=== PATIENT | female | born 1930 | race Caucasian/White ===

== ENCOUNTER 2019-03-19 13:21 | Observation (INO) ==
--- OUTSIDE RECORDS SUMMARY | 2019-03-19 13:25 | External Medical Summary | Continuity of Care Document ---
:1930 Author Name Socorro Carrington, Provider Address Unavailable Unavailable , Care Team Providers Name Role Phone Ok [email or web address] PCP, UNKNOWN Unavailable Unavailable Problems Active medical history not documented Allergies and Adverse Reactions Allergy history not documented Medications Medications not documented Procedures Procedures not documented Immunizations Immunizations not documented Plan of Treatment Planned Observations Planned Goals not documented Results No Known Results Results not documented
--- NOTE | 2019-03-19 14:24 | Emergency Department Note ---
Entered by Yris Sarabia acting as a scribe for History of Present Illness General Chief complaint: Leg Weakness, Bilateral Time Seen by Provider: 03/19/19 13:56 Source: patient History of Present Illness Onset (ago): day(s) (yesterday) Location: left (knee) and right (knee, elbow) Pain Consistency: + other (worsening) Quality: + other (leg weakness) Associated symptoms: + other (Positive right elbow weakness and pain. Negative recent trauma, hip pain, urinary symptoms, cough, SOB, chest pain, fevers, abdominal pain, prior knee surgeries) The patient is a 88 year old female who presents to the ED with complaints of leg weakness beginning yesterday. She is on coumadin and has a past hx of a stroke. She states she has had chronic left knee pain for years but does not normally have issues with her right leg. She is accompanied by her friend who states yesterday around dinner, the patient began complaining of right knee pain and difficulty ambulating. When she was going to bed, she could no longer walk due to her pain. She notes her pain radiates down her right [place] and she also has right elbow pain and weakness. The patient denies any recent trauma, hip pain, urinary symptoms, cough, SOB, chest pain, fevers, abdominal pain, prior knee surgeries. Her PCP is Dr. Walter Beckford, Cashier Assistant. Home Medications Home Medications Medication Instructions Recorded Confirmed Type acetaminophen [Tylenol Extra 500 mg PO Q6H PRN 03/19/19 03/19/19 History Strength] ascorbic acid (vitamin C) [Vitamin 500 mg PO BIDM 03/19/19 03/19/19 History C] aspirin 81 mg PO Q2D 03/19/19 03/19/19 History atorvastatin 20 mg PO QDD 03/19/19 03/19/19 History camphor-methyl salicyl-menthol 1 ea TOPICAL UD 03/19/19 03/19/19 History [Salonpas Deep Relieving] carvedilol 12.5 mg PO BID 03/19/19 03/19/19 History fluoride (sodium) [Denta 5000 Plus] 1 applic DENTAL DAILY 03/19/19 03/19/19 H istory glucosamine sulfate [Glucosamine] 500 mg PO BIDM 03/19/19 03/19/19 History lactobacillus combination no.4 3,000 mmu cells PO .Q2D.QAM 03/19/19 03/19/19 History [Probiotic] losartan 100 mg PO QAM 03/19/19 03/19/19 History multivitamin 1 tab PO QAM 03/19/19 03/19/19 History vitamin B complex 1 tab PO QDD 03/19/19 03/19/19 History vitamin E 400 unit PO QAM 03/19/19 03/19/19 History warfarin 2 mg PO HS 03/19/19 03/19/19 History Allergies Allergy/AdvReac Type Severity Reaction Status Date / Time doxycycline Allergy Severe SWELLING Verified 03/19/19 14:47 Penicillins Allergy Severe ANAPHYLAXIS Verified 03/19/19 14:47 Past Med/Surg History Medical History AAA (abdominal aortic aneurysm) (Chronic) CKD (chronic kidney disease), stage III History of CVA (cerebrovascular accident) History of tobacco abuse HLD (hyperlipidemia) HTN (hypertension) Osteoporosis Stroke Surgical History History of cataract surgery (Resolved) History of tonsillectomy Family History Father , 53 No problems noted. Mother , 93 PMR (polymyalgia rheumatica) Other No pertinent family history in first degree relatives Social History (Updated 03/19/19 @ 18:41 by Bisi Parker PA-C) Preferred Language: Turkish Communication Ability: Effective Pocket Marker Required: No Beliefs That Will Affect Care: None Current Living Situation: Family Current Living Situation Comment: lives with daughter Other Information That Helps Us Care for You: No Feels Safe at Home: Yes Safety Concerns: Feels Safe At This Time Smoking Status: Former smoker Tobacco Type: cigarettes ; packs per day: 1 ; Years Smoked: 50 ; Do You Dip or Chew Tobacco: No ; Smoking End Date: 2007 ; Second Hand Exposure: No ; Tobacco Cessation Education Requested by Patient: No Hx Alcohol Use: No Hx Substance Use: No Review of Systems See HPI for pertinent positives & negatives. and A total of 10 systems reviewed and were otherwise negative Physical Exam Vital Signs Vital Signs - 24 hr 03/19/19 13:25 03/19/19 13:26 03/19/19 13:28 Temperature 37.8 C H Temperature Source Oral Pulse Rate 80 75 80 Pulse Rate from SpO2 Sensor 80 79 Pulse Rhythm Regular Pulse Strength Normal Respiratory Rate 21 11 L Respiratory Effort / Characteristics Non-Labored Respiratory Depth Normal Respiratory Pattern Regular Blood Pressure 194/81 H 194/81 H Blood Pressure Mean 126 118 Blood Pressure Position Lying Pulse Oximetry 95 95 95 Oxygen Delivery Method Room Air Sepsis Recent Fever Within 48 Hours No Sepsis Action Taken by Nursing No Action Required 03/19/19 13:30 03/19/19 14:00 Temperature Temperature Source Pulse Rate 79 79 Pulse Rate from SpO2 Sensor 79 79 Pulse Rhythm Pulse Strength Respiratory Rate 22 20 Respiratory Effort / Characteristics Respiratory Depth Respiratory Pattern Blood Pressure Blood Pressure Mean Blood Pressure Position Pulse Oximetry 95 93 Oxygen Delivery Method Sepsis Recent Fever Within 48 Hours Sepsis Action Taken by Nursing General: Non-ill appearing older female in no acute distress. HEENT: Normal cephalic atraumatic. Pupils are equal round and reactive to light. Extraocular movements are intact. Oropharynx is pink with moist mucous membranes. No swelling of the mouth lips or tongue. Neck: Supple with a midline trachea. No meningeal signs or stiffness, no JVD or bruits. No Stridor. Chest: Clear to auscultation bilaterally. No wheezes or rhonchi. No increased work of breathing. Heart: regular rate and rhythm. Abdomen: Soft nontender, nondistended without rebound guarding or rigidity. Extremities: No cyanosis clubbing or edema. No calf tenderness or asymmetry. F eet are pink and well perfused appearing with normal distal pulse. Right knee is swollen compared to left. Spine/Back. Non tender to palpation. No CVA tenderness Skin: Good turgor without rashes. Neurologic exam: Cranial nerves two through 12 are intact. Motor and sensation are intact and symmetrical throughout. Course Course 1359: Past medical records reviewed. The patient was evaluated in room C12. A complete history and physical exam was performed. 1443: I reevaluated the patient at this time She is resting comfortable and waiting to go to ultrasound. 1630: I reevaluated the patient at this time. She is undergoing an ambulatory trial. 1710: The patient failed her ambulatory trial. 1724: Discussed the patient's case with Dr. Sequeira, [facility]. The patient will be evaluated for further management. Administered Medications Carvedilol (Coreg) 12.5 mg PO BID VALE Stop: 04/18/19 20:59 Last Admin: 03/19/19 20:28 Dose: 12.5 mg Documented by: [id number] Medical Decision Making Differential Diagnosis Differential diagnosis: Etiologies such as DVT, Bakers cyst, infection, joint effusion, electrolyte or metabolic abnormality, as well as others were entertained. Medical Records Attestation: I reviewed the patient's medical records. Home Medications Current Medication List: was personally reviewed by me Laboratory Data Attestation: I reviewed the patient's lab results. Result diagrams: 03/19/19 14:17 03/19/19 14:17 Lab Results 03/19/19 03/19/19 03/19/19 Range/Units 14:17 14:17 14:17 WBC 8.59 (4.8-10.8) K/uL RBC 4.24 (4.2-5.4) M/uL Hgb 12.5 (12.0-16.0) g/dL Hct 38.0 (37-47) % MCV 89.6 (80-100) fL MCH 29.5 (25-34) pg MCHC 32.9 (32-36) g/dL RDW Std Deviation 48.7 H (36.4-46.3) fL RDW Coeff of Ele 14.8 H (11.5-14.5) % Plt Count 138 (130-400) K/uL MPV 11.6 H (7.4-10.4) fL Immature Gran % (Auto) 0.1 % Neut % (Auto) 77.1 % Lymph % (Auto) 12.2 % [place] % (Auto) 10.4 % Eos % (Auto) 0.0 % Baso % (Auto) 0.2 % Immature Gran # (Auto) 0.01 (0.00-0.02) K/uL Neut # (Auto) 6.62 H (1.4-6.5) K/uL Lymph # (Auto) 1.05 L (1.2-3.4) K/uL [place] # (Auto) 0.89 H (0.11-0.59) K/uL Eos # (Auto) 0.00 (0-0.5) K/uL Baso # (Auto) 0.02 (0-0.2) K/uL PT 17.9 H (9.0-12.0) Seconds INR 1.8 H (0.9-1.1) APTT 38.4 H (21.0-31.0) Seconds PTT Ratio 1.4 Sodium 140 (136-145) mmol/L Potassium 3.5 (3.5-5.1) mmol/L Chloride 108 H (98-107) mmol/L Carbon Dioxide 27 (21-32) mmol/L Anion Gap 5.0 (3-11) BUN 20 H (7-18) mg/dl Creatinine 1.10 (0.6-1.2) mg/dl Est Cr Clr Drug Dosing 37.5 ml/min Est GFR ( Amer) 52.6 Est GFR (Non-Af Amer) 45.4 BUN/Creatinine Ratio 18.5 (10-20) Glucose 131 H (70-99) mg/dl Calcium 9.4 (8.5-10.1) mg/dl Total Bilirubin 1.0 (0.2-1) mg/dl AST 14 L (15-37) U/L ALT 17 (12-78) U/L Alkaline Phosphatase 55 (45-117) U/L Total Protein 7.2 (6.4-8.2) gm/dl Albumin 3.4 (3.4-5.0) gm/dl Globulin 3.8 (2.5-4.0) gm/dl Albumin/Globulin Ratio 0.9 (0.9-2) TSH 0.762 (0.300-4.500) uIu/ml 03/19/19 Range/Units 14:17 WBC (4.8-10.8) K/uL RBC (4.2-5.4) M/uL Hgb (12.0-16.0) g/dL Hct (37-47) % MCV (80-100) fL MCH (25-34) pg MCHC (32-36) g/dL RDW Std Deviation (36.4-46.3) fL RDW Coeff of Ele (11.5-14.5) % Plt Count (130-400) K/uL MPV (7.4-10.4) fL Immature Gran % (Auto) % Neut % (Auto) % Lymph % (Auto) % [place] % (Auto) % Eos % (Auto) % Baso % (Auto) % Immature Gran # (Auto) (0.00-0.02) K/uL Neut # (Auto) (1.4-6.5) K/uL Lymph # (Auto) (1.2-3.4) K/uL [place] # (Auto) (0.11-0.59) K/uL Eos # (Auto) (0-0.5) K/uL Baso # (Auto) (0-0.2) K/uL PT (9.0-12.0) Seconds INR (0.9-1.1) APTT Cancelled (21.0-31.0) Seconds PTT Ratio Cancelled Sodium (136-145) mmol/L Potassium (3.5-5.1) mmol/L Chloride (98-107) mmol/L Carbon Dioxide (21-32) mmol/L Anion Gap (3-11) BUN (7-18) mg/dl Creatinine (0.6-1.2) mg/dl Est Cr Clr Drug Dosing ml/min Est GFR ( Amer) Est GFR (Non-Af Amer) BUN/Creatinine Ratio (10-20) Glucose (70-99) mg/dl Calcium (8.5-10.1) mg/dl Total Bilirubin (0.2-1) mg/dl AST (15-37) U/L ALT (12-78) U/L Alkaline Phosphatase (45-117) U/L Total Protein (6.4-8.2) gm/dl Albumin (3.4-5.0) gm/dl Globulin (2.5-4.0) gm/dl Albumin/Globulin Ratio (0.9-2) TSH (0.300-4.500) uIu/ml Imaging Data Radiologist's Impression: Radiology results as stated below per my review and the radiologist's interpretation: US venous doppler LE RT CLINICAL HISTORY: 88 years-old Female presenting with pain and swelling in the right lower extremity, eval for DVT/bakers cyst. TECHNIQUE: Real-time grayscale and color and spectral Doppler ultrasound imaging of the veins of the right lower extremity was performed. Compression and augmentation were also utilized. COMPARISON: Correlation made to plain radiographs of the right knee from earlier the same day.. FINDINGS: RIGHT: Common femoral vein: Patent. Greater saphenous vein (superficial): Patent. Deep femoral vein: Patent. Femoral vein: Patent. Popliteal vein: Patent. Calf veins: Patent. Other: Collection in the right popliteal fossa measuring 5.5 x 1.3 x 2.4 cm, which is multilobular and anechoic. This also contains calcifications. IMPRESSION: 1. No evidence of deep venous thrombosis. 2. Suspected popliteal cyst with internal loose bodies. ACT 112: Negative or not required by law. Electronically signed by: Shorty Hurtado M.D. 03/19/2019 3:15 PM XR knee RT 1 or 2V routine CLINICAL HISTORY: Right knee swelling. COMPARISON: None FINDINGS: No acute fracture is noted. There is a large right knee joint effusion. No suspicious osseous lesion is present. There is marked lateral compartment joint space narrowing with osteophytosis and sclerosis. There is osteophytosis within the medial and patellofemoral compartments. A 1.8 cm calcific density projects anterior to the joint space. A 1.9 cm suprapatellar calcific density is noted. There is extensive vascular calcification. IMPRESSION: 1. No acute fracture. 2. Large right knee joint effusion. Several suspected joint bodies. 3. 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 ACT 112: Negative or not required by law. Electronically signed by: Will Arora M.D. 03/19/2019 2:46 PM ECG Data Attestation: I personally reviewed and interpreted this ECG as follows: Indication: + other (leg weakness ) Rate (beats per minute): 77 Rhythm: + normal sinus ECG ST segments: no ST depression and no ST elevation ECG Findings: + LVH and + Other (old inferior infarct) Comparison ECG Date: from (10/21/14) Change: no significant change Blood Pressure Blood Pressure Findings: Elevated blood pressure Blood Pressure Disposition: further management by hospitalist [facility] Narrative This patient comes in as described above. She was placed in room C 12. She has been having right knee swelling and weakness and pain. She is on Coumadin. She has had no fall. On exam, the knee is swollen. She is neurologically and neurovascularly intact. IV access was established. I did order ultrasound as well as an x-ray multiple blood testing. She does have a history of an aneurysm that was deemed nonoperative by her choice based on the risk and the benefits. She has had no abdominal pain or back pain. X-ray shows an effusion with some loose foreign bodies. Ultrasound does show a Tian's cyst without DVT. She is on Coumadin with INR 1.8 and she has nothing to suggest infection. she has no acute electrolyte or metabolic abnormalities. She does have significant ambulatory dysfunction secondary to her knee does not appear to be infected clinically. She has no evidence of arterial compromise. We did do an ambulatory trial with a knee immobilizer and she was unable to get up. I had her field case manager see her and they consider trying to get her into [facility] for rehab. They would not take her tonight and she does need a hospital stay to qualify for rehab. Have consulted the hospitalist to see her in the ER and while she is in the hospital, Ortho could potentially see her as well. The patient was happy the plan and she will be admitted/observed. Impression & Plan Weakness, Effusion of right knee, Popliteal cyst, Current use of remote computer terminal operator anticoagulation, Ambulatory dysfunction Discharge Plan Visit Data *Final* Discharge Date/Time: 03/19/19 19:29 Chief Complaint: Leg Weakness, Bilateral ED Provider: Christopher Chaves Discharge Problem: Weakness, Effusion of right knee, Popliteal cyst, Current use of usp anticoagulation, Ambulatory dysfunction Patient Disposition: Admitted As Inpatient Discharge Instructions Interventions: ED Discharge Assessment Last Done: 03/19/19 19:29 Discharge Problem: Popliteal cyst Qualifiers: Laterality: right Qualified Code(s): M71.21 - Synovial cyst 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 I confirm that the note above accurately reflects all work, treatment, procedures, and medical decision making performed by me.
[2019-03-19 14:30] LABS: Basophils # (auto) 0.02 K/uL (0-0.2); Basophils % (auto) 0.2 %; Hemoglobin 12.5 g/dL (12.0-16.0); Immature Granulocytes # (auto) 0.01 K/uL (0.00-0.02); Immature Granulocytes % (auto) 0.1 %; Lymphocytes # (auto) 1.05 K/uL (1.2-3.4); Lymphocytes % (auto) 12.2 %; Mean Corpuscular Hemoglobin 29.5 pg (25-34); Mean Corpuscular Hgb Conc 32.9 g/dL (32-36); Mean Corpuscular Volume 89.6 fL (80-100); Mean Platelet Volume 11.6 fL (7.4-10.4); Monocytes # (auto) 0.89 K/uL (0.11-0.59); Monocytes % (auto) 10.4 %; Neutrophils # (auto) 6.62 K/uL (1.4-6.5); Neutrophils % (auto) 77.1 %; Platelet Count 138 K/uL (130-400); RDW Coefficient of Variation 14.8 % (11.5-14.5); RDW Standard Deviation 48.7 fL (36.4-46.3); Red Blood Count 4.24 M/uL (4.2-5.4); White Blood Count 8.59 K/uL (4.8-10.8)
[2019-03-19 14:40] LABS: INR 1.8 (0.9-1.1); Partial Thromboplastin Ratio 1.4; Partial Thromboplastin Time 38.4 Seconds (21.0-31.0); Prothrombin Time 17.9 Seconds (9.0-12.0)
--- NOTE | 2019-03-19 14:47 | XRay Report ---
XR knee RT 1 or 2V routine CLINICAL HISTORY: Right knee swelling. COMPARISON: None FINDINGS: No acute fracture is noted. There is a large right knee joint effusion. No suspicious osse ous lesion is present. There is marked lateral compartment joint space narrowing with osteophytosis a nd sclerosis. There is osteophytosis within the medial and patellofemoral compartments. A 1.8 cm calc ific density projects anterior to the joint space. A 1.9 cm suprapatellar calcific density is noted. There is extensive vascular calcification. IMPRESSION: 1. No acute fracture. 2. Large right knee joint effusion. Several suspected joint bodies. 3. 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 ACT 112: Negative or not required by law. Electronically signed by: Will Arora M.D. 03/19/2019 2:46 PM
[2019-03-19 14:48] LABS: Albumin Level 3.4 gm/dl (3.4-5.0); BUN Creatinine Ratio 18.5 (10-20); Calcium 9.4 mg/dl (8.5-10.1); Creatinine Clr Calc Pharmacy 37.5 ml/min; Est GFR (African American) 52.6; Est GFR (Non-African American) 45.4; Potassium 3.5 mmol/L (3.5-5.1)
[2019-03-19 14:59] LABS: Albumin Globulin Ratio 0.9 (0.9-2); Globulin 3.8 gm/dl (2.5-4.0); Thyroid Stimulating Hormone 0.762 uIu/ml (0.300-4.500); Total Protein 7.2 gm/dl (6.4-8.2)
--- NOTE | 2019-03-19 15:17 | Ultrasound Report ---
US venous doppler LE RT CLINICAL HISTORY: 88 years-old Female presenting with pain and swelling in the right lower extremity, eval for DVT/bakers cyst. TECHNIQUE: Real-time grayscale and color and spectral Doppler ultrasound imaging of the veins of the right lower extremity was performed. Compression and augmentation were also utilized. COMPARISON: Correlation made to plain radiographs of the right knee from earlier the same day.. FINDINGS: RIGHT: Common femoral vein: Patent. Greater saphenous vein (superficial): Patent. Deep femoral vein: Patent. Femoral vein: Patent. Popliteal vein: Patent. Calf veins: Patent. Other: Collection in the right popliteal fossa measuring 5.5 x 1.3 x 2.4 cm, which is multilobular an d anechoic. This also contains calcifications. IMPRESSION: 1. No evidence of deep venous thrombosis. 2. Suspected popliteal cyst with internal loose bodies. ACT 112: Negative or not required by law. Electronically signed by: Shorty Hurtado M.D. 03/19/2019 3:15 PM
--- NOTE | 2019-03-19 18:32 | History & Physical Report ---
Date of Service March 19, 2019 Assessment & Plan (1) Ambulatory dysfunction: (2) Effusion of right knee: (3) Popliteal cyst: Mrs. Adler is a pleasant 88-year-old female who has significant past medical history of CVA in 2003 with no residual deficit on warfarin, HTN, HLD, CKD stage III, aortic valve stenosis, osteoporosis, AAA, history of tobacco abuse who presents to ED secondary to severe right knee pain and inability to walk x2 days. Ambulatory dysfunction right knee pain likely secondary to large right knee effusion and symptomatic popliteal cyst. Effusion likely arthritic or hemarthrosis in nature. Infection not entirely ruled out. Admit to Med/Surg Consult orthopedics for possible joint aspiration Dedicated right knee ultrasound Continue immobilizer, ice 4 times daily warfarin on hold PT & OT consults in a.m. WBC WNL, temp 37.3 upon my evaluation, appears nontoxic -if patient develops fever overnight low threshold to start antibiotics, severe allergic reaction to doxycycline and penicillins (4) Current use of terminal makeup operator anticoagulation: On warfarin secondary to history of CVA INR 1.8 Hold warfarin this evening until seen and evaluated by Ortho possible joint arthrocentesis Repeat INR in a.m. (5) HTN (hypertension): blood pressure initially elevated upon arrival now 154/63 continue coreg, losartan monitor (6) HLD (hyperlipidemia): continue statin (7) CKD (chronic kidney disease), stage III: Cr 1.10 baseline Cr 1.5 monitor (8) History of CVA (cerebrovascular accident): continue ASA, Statin wafarin on hold obtain PT/INR in a.m. (9) DVT prophylaxis: SCD/TEDS warfarin on hold until seen by orthopedic Disposition: admit under observation to med/surg, likely discharge to acute rehab tomorrow Follow up: PCP Dr. Beckford upon discharge History of Present Illness Chief Complaint: Severe right knee pain and inability to walk x2 days. Primary Care Provider: Walter Beckford DO Mrs. Adler is a pleasant 88-year-old female who has significant past medical history of CVA in 2003 with no residual deficit on warfarin, HTN, HLD, CKD stage III, aortic valve stenosis, osteoporosis, AAA, history of tobacco abuse who presents to ED secondary to severe right knee pain and inability to walk x2 days. Daughter is at bedside. Approximately 2 days ago she noted swelling of her right knee which continued to worsen. Last evening she was having significant inability to ambulate which had worsened today. Because of the pain and inability to walk EMS was called. Pain is on the front of the right knee as well as the back. Complains of fluid in the back of her knee. Pain improved with rest but made worse with any movement or walking. Has tried [id number] Tylenol with mild relief. Prior to her right knee pain she has otherwise been in her normal state of health. She lives at home with a first- floor set up with her daughter. At baseline ambulates with a walker and cane without difficulty. Denies any recent illness, fever, chills, sweats, lightheadedness, dizziness, chest pain, shortness with, palpitations, cough, hemoptysis, nausea, vomiting, abdominal pain, dysuria, increased urgency or frequency with urination. Her bowel habits are normal for her, more constipated. Appetite has been stable, no weight gain or loss denies any significant lower extremity swelling despite her right knee. She denies any recent trauma or fall. Denies ever having similar symptoms in past. In ED patient remained hemodynamically stable. Upon my evaluation blood pressure was 154/63 and temperature 37.3. 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 Right lower extremity ultrasound was negative for DVT but did reveal popliteal cyst 5 cm x 2 cm. Patient was placed in knee immobilizer which did improve symptoms. Allergies Allergy/AdvReac Type Severity Reaction Status Date / Time doxycycline Allergy Severe SWELLING Verified 03/19/19 14:47 Penicillins Allergy Severe ANAPHYLAXIS Verified 03/19/19 14:47 Home Medications Home Medications Medication Instructions Recorded Confirmed Type acetaminophen [Tylenol Extra 500 mg PO Q6H PRN 03/19/19 03/19/19 History Strength] ascorbic acid (vitamin C) [Vitamin 500 mg PO BIDM 03/19/19 03/19/19 History C] aspirin 81 mg PO Q2D 03/19/19 03/19/19 History atorvastatin 20 mg PO QDD 03/19/19 03/19/19 History camphor-methyl salicyl-menthol 1 ea TOPICAL UD 03/19/19 03/19/19 History [Salonpas Deep Relieving] carvedilol 12.5 mg PO BID 03/19/19 03/19/19 History fluoride (sodium) [Denta 5000 Plus] 1 applic DENTAL DAILY 03/19/19 03/19/19 History glucosamine sulfate [Glucosamine] 500 mg PO BIDM 03/19/19 03/19/19 History lactobacillus combination no.4 3,000 mmu cells PO .Q2D.QAM 03/19/19 03/19/19 History [Probiotic] losartan 100 mg PO QAM 03/19/19 03/19/19 History multivitamin 1 tab PO QAM 03/19/19 03/19/19 History vitamin B complex 1 tab PO QDD 03/19/19 03/19/19 History vitamin E 400 unit PO QAM 03/19/19 03/19/19 History warfarin 2 mg PO HS 03/19/19 03/19/19 History Past Med/Surg History Medical History AAA (abdominal aortic aneurysm) (Chronic) CKD (chronic kidney disease), stage III History of CVA (cerebrovascular accident) History of tobacco abuse HLD (hyperlipidemia) HTN (hypertension) Osteoporosis Stroke Surgical History History of cataract surgery (Resolved) History of tonsillectomy Family History Father , 53 No problems noted. Mother , 93 PMR (polymyalgia rheumatica) Other No pertinent family history in first degree relatives Social History (Updated 03/19/19 @ 18:41 by Bisi Parker PA-C) Preferred Language: Swazi Communication Ability: Effective Galley Worker Required: No Beliefs That Will Affect Care: None Current Living Situation: Family Current Living Situation Comment: lives with daughter Other Information That Helps Us Care for You: No Feels Safe at Home: Yes Safety Concerns: Feels Safe At This Time Smoking Status: Former smoker Tobacco Type: cigarettes ; packs per day: 1 ; Years Smoked: 50 ; Do You Dip or Chew Tobacco: No ; Smoking End Date: 2007 ; Second Hand Exposure: No ; Tobacco Cessation Education Requested by Patient: No Hx Alcohol Use: No Hx Substance Use: No Review of Systems Review of Systems: All systems reviewed & are unremarkable except as noted in HPI & below Physical Exam Physical Exam: Constitutional: Elderly, female, WD/WN, vitals as above, NAD, sitting up in bed, pleasant, conversing easily Head: Normocephalic, Atraumatic Eyes: PERRL, conjunctivae normal, anicteric sclerae ENMT: external ear and nose normal, oropharynx normal Neck: trachea midline, no thyromegaly normal visual inspection Respiratory: normal respiratory effort, lungs clear to auscultation, no wheeze, rales, rhonchi. Normal insp/exp effort, no accessory muscle use Cardiovascular: RRR, harsh 3/6 LIZA noted precordially but maximally at RUSB, no pretibial or pedal edema Vessels: no JVD or carotid bruit Chest: normal inspection of chest Abdomen: normal bowel sounds, soft, nontender, no hepatosplenomegaly Musculoskeletal: no cyanosis or clubbing, extremities motor strength 5/5 bilateral upper extremities, inability to test right lower extremity secondary to pain, left lower extremity 4/5 Right knee with effusion, warmth, no erythema, decreased range of motion passively with flexion, right knee popliteal cyst palpated on exam Skin: no rashes, warm and dry normal turgor Neurologic: PERRL, EOMI, accommodation nl, no face palsy, no dysarthria CN's II-XI intact bilaterally and moves all extremities Psychiatric: A+Ox3, euthymic affect Lymphatic: no cervical or axillary lymphadenopathy : deferred Results & Data Vital Signs (Past 12 Hours) Vital Signs Temp Pulse Resp BP Pulse Ox 03/19/19 14:00 79 20 93 03/19/19 13:30 79 22 95 03/19/19 13:28 80 95 03/19/19 13:26 37.8 C H 75 11 L 194/81 H 95 03/19/19 13:25 80 21 194/81 H 95 Laboratory Results Short CBC 03/19/19 Range/Units 14:17 WBC 8.59 (4.8-10.8) K/uL Hgb 12.5 (12.0-16.0) g/dL Hct 38.0 (37-47) % Plt Count 138 (130-400) K/uL BMP 03/19/19 14:17 Sodium 140 Potassium 3.5 Chloride 108 H Carbon Dioxide 27 BUN 20 H Creatinine 1.10 Glucose 131 H Calcium 9.4 Liver Function 03/19/19 Range/Units 14:17 Total Bilirubin 1.0 (0.2-1) mg/dl AST 14 L (15-37) U/L ALT 17 (12-78) U/L Alkaline Phosphatase 55 (45-117) U/L Albumin 3.4 (3.4-5.0) gm/dl Diagnostic Findings Knee Xray: IMPRESSION: 1. No acute fracture. 2. Large right knee joint effusion. Several suspected joint bodies. 3. 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 Venous Doppler Study: FINDINGS: RIGHT: Common femoral vein: Patent. Greater saphenous vein (superficial): Patent. Deep femoral vein: Patent. Femoral vein: Patent. Popliteal vein: Patent. Calf veins: Patent. Other: Collection in the right popliteal fossa measuring 5.5 x 1.3 x 2.4 cm, which is multilobular and anechoic. This also contains calcifications. IMPRESSION: 1. No evidence of deep venous thrombosis. 2. Suspected popliteal cyst with internal loose bodies. Code Status & VTE Plan Code Status Full Code VTE Prophylaxis Plan VTE Prophylaxis will be ordered: Yes Supervising Physician Co-Signing Physician Notes Attending Addendum: care coordinated with AJ Parker please refer to her notes for full details, I agree with her notes patient seen and examined, records reviewed by myself as well on exam, patient seen resting in bed, comfortable, pleasant states R knee pain has improved since admission denies fever/chills no other symptoms VS noted and reviewed oriented x 3, not in distress, speaks in sentences with no effort nor accessory muscle use normal rate, regular rhythm, no murmurs clear breath sounds bilaterally non distended, soft, nontender right knee: moderate edema, mild tenderness but no erythema, warmth; decreased ROM due to pain no bipedal edema, erythema, warmth no neuro deficits WBC 8.5 Hg 12.5 Crea 1.1 ASSESSMENT AND PLAN RIGHT KNEE EFFUSION Knee US: FINDINGS: Moderately complex medial and lateral to the patella. Medial this measures approximately 3.5 x 1.0 cm. Laterally this measures 7 x 2 cm. This may represent a joint effusion. IMPRESSION: Fluid medial and lateral to the patella potentially indicative of joint effusion. -- no fever/chills, no leukocytosis -- septic arthritis unlikely at this point if patient develops fever, need to start IV antibiotics -- pain control, Ortho consult JAIL USE OF ANTICOAGULATION- Coumadin HISTORY OF CVA -- INR 1.8 hold Coumadin for possible arthocentesis other diagnoses and plan of care as per AJ Banks's notes Jose Sequeira MD (1) Popliteal cyst Laterality: right Qualified Code(s): M71.21 - Synovial cyst of popliteal space [Tian], right knee
--- NOTE | 2019-03-19 19:32 | Ultrasound Report ---
US extremity non-vascular ltd CLINICAL HISTORY: R Knee Effusion COMPARISON STUDY: No previous studies for comparison. FINDINGS: Moderately complex medial and lateral to the patella. Medial this measures approximately 3. 5 x 1.0 cm. Laterally this measures 7 x 2 cm. This may represent a joint effusion. IMPRESSION: Fluid medial and lateral to the patella potentially indicative of joint effusion. ACT 112: Negative or not required by law. The above report was generated using voice recognition software. It may contain grammatical, syntax or spelling errors. Electronically signed by: Felice Comer M.D. 03/19/2019 7:30 PM
[2019-03-19] MEDS ORDERED: POLYETHYLENE (MIRALAX) 17 GM PACK PO PRN (19:44)
[2019-03-19] MEDS ORDERED: ACETAMINOPHEN 325 MG TAB PO PRN (19:44)
[2019-03-19] MEDS ORDERED: ONDANSETRON INJ 2 MG/ML 2 ML VIAL IV PRN (19:44)
[2019-03-19] MEDS: carvediloL 12.5 MG TAB PO SCH (20:28)
--- NOTE | 2019-03-19 23:10 | Electrocardiogram Report ---
Test Reason : Blood Pressure : / mmHG Vent. Rate : 077 BPM Atrial Rate : 077 BPM P-R Int : 148 ms QRS Dur : 092 ms QT Int : 348 ms P-R-T Axes : 017 -10 053 degrees QTc Int : 393 ms Sinus rhythm with Premature atrial complexes Moderate voltage criteria for LVH, may be normal variant Inferior infarct (cited on or before 11-DEC-2008) Abnormal ECG When compared with ECG of 22-OCT-2014 08:18, No significant change Confirmed by Uylsses Cuadra ([id number]) on 03/19/2019 11:10:37 PM Referred By: Confirmed By:Ulysses Cuadra
[2019-03-20 07:14] LABS: Basophils # (auto) 0.05 K/uL (0-0.2); Basophils % (auto) 0.8 %; Eosinophils # (auto) 0.11 K/uL (0-0.5); Eosinophils % (auto) 1.8 %; Hematocrit (blood only) 35.6 % (37-47); Hemoglobin 11.6 g/dL (12.0-16.0); Immature Granulocytes # (auto) 0.02 K/uL (0.00-0.02); Immature Granulocytes % (auto) 0.3 %; Lymphocytes # (auto) 1.16 K/uL (1.2-3.4); Lymphocytes % (auto) 18.5 %; Mean Corpuscular Hemoglobin 29.4 pg (25-34); Mean Corpuscular Hgb Conc 32.6 g/dL (32-36); Mean Corpuscular Volume 90.1 fL (80-100); Mean Platelet Volume 11.3 fL (7.4-10.4); Monocytes # (auto) 0.79 K/uL (0.11-0.59); Monocytes % (auto) 12.6 %; Neutrophils # (auto) 4.15 K/uL (1.4-6.5); Platelet Count 113 K/uL (130-400); RDW Coefficient of Variation 14.9 % (11.5-14.5); RDW Standard Deviation 49.3 fL (36.4-46.3); Red Blood Count 3.95 M/uL (4.2-5.4); White Blood Count 6.28 K/uL (4.8-10.8)
[2019-03-20 07:22] LABS: INR 1.6 (0.9-1.1); Prothrombin Time 15.9 Seconds (9.0-12.0)
[2019-03-20 07:40] LABS: BUN Creatinine Ratio 19.4 (10-20); Calcium 8.9 mg/dl (8.5-10.1); Creatinine Clr Calc Pharmacy 36.8 ml/min; Est GFR (African American) 51.5; Est GFR (Non-African American) 44.4; Potassium 3.5 mmol/L (3.5-5.1)
[2019-03-20] MEDS ORDERED: NON-FORMULARY MEDICATION (Glucosamine Sulfate [Glucosamine] 500 MG) PO SCH (08:00)
[2019-03-20] MEDS: LACTOBACILLUS ACIDOPHILUS (FLORANEX) TAB PO SCH (08:55)
[2019-03-20] MEDS: TOCOPHERYL, DL-ALPHA 400 UNITS CAP PO SCH (08:55)
[2019-03-20] MEDS: ASCORBIC ACID 500 MG TAB PO SCH ×2 (08:55→17:36)
[2019-03-20] MEDS: carvediloL 12.5 MG TAB PO SCH ×2 (08:55→20:44)
[2019-03-20] MEDS: MULTIVITAMIN TAB PO SCH (08:55)
[2019-03-20] MEDS: LOSARTAN POTASSIUM 50 MG TAB PO SCH (08:55)
--- NOTE | 2019-03-20 10:49 | Orthopedic Consultation ---
Date of Consultation March 20, 2019 Assessment & Plan (1) Effusion of right knee: Likely spontaneous hemarthrosis of the right knee. However will rule out other causes for right knee effusion including Lyme disease. Low suspicion for septic arthritis. No surgical intervention at this time. If worsening effusion or pain or suspicion for infection would we proceed with arthrocentesis. Conservative treatments at this time including Lidoderm patch, ice and elevation, physical therapy when medically stable. Thank you for the consultation. History of Present Illness Reason for Consultation: Right knee effusion Attending Physician: Jonah Dsouza MD History of Present Illness Patient is an 88-year-old female who presents to [facility] secondary to ambulatory dysfunction due to increasing right knee pain which began 03/17/2019. Patient denies any trauma to the right knee. Denies a ny previous symptoms of knee swelling, denies any fevers chills nausea vomiting shortness of breath or chest pain. Patient has known history for DJD of the right knee and has seen Dr. Aparicio previously for her knees. Patient is on Coumadin for previous stroke. She has residual left-sided weakness. Patient denies any tick bites or history of gout. Allergies Allergy/AdvReac Type Severity Reaction Status Date / Time doxycycline Allergy Severe SWELLING Verified 03/19/19 14:47 Penicillins Allergy Severe ANAPHYLAXIS Verified 03/19/19 14:47 Home Medications Home Medications Medication Instructions Recorded Confirmed Type acetaminophen [Tylenol Extra 500 mg PO Q6H PRN 03/19/19 03/19/19 History Strength] ascorbic acid (vitamin C) [Vitamin 500 mg PO BIDM 03/19/19 03/19/19 History C] aspirin 81 mg PO Q2D 03/19/19 03/19/19 History atorvastatin 20 mg PO QDD 03/19/19 03/19/19 History camphor-methyl salicyl-menthol 1 ea TOPICAL UD 03/19/19 03/19/19 History [Salonpas Deep Relieving] carvedilol 12.5 mg PO BID 03/19/19 03/19/19 History fluoride (sodium) [Denta 5000 Plus] 1 applic DENTAL DAILY 03/19/19 03/19/19 History glucosamine sulfate [Glucosamine] 500 mg PO BIDM 03/19/19 03/19/19 History lactobacillus combination no.4 3,000 mmu cells PO .Q2D.QAM 03/19/19 03/19/19 History [Probiotic] losartan 100 mg PO QAM 03/19/19 03/19/19 History multivitamin 1 tab PO QAM 03/19/19 03/19/19 History vitamin B complex 1 tab PO QDD 03/19/19 03/19/19 History vitamin E 400 unit PO QAM 03/19/19 03/19/19 History warfarin 2 mg PO HS 03/19/19 03/19/19 History Patient History Medical History AAA (abdominal aortic aneurysm) (Chronic) CKD (chronic kidney disease), stage III History of CVA (cerebrovascular accident) History of tobacco abuse HLD (hyperlipidemia) HTN (hypertension) Osteoporosis Stroke Surgical History History of cataract surgery (Resolved) History of tonsillectomy Family History Father , 53 No problems noted. Mother , 93 PMR (polymyalgia rheumatica) Other No pertinent family history in first degree relatives Social History Preferred Language: Setswana Communication Ability: Effective Smog Technician Required: No Beliefs That Will Affect Care: None Current Living Situation: Family Current Living Situation Comment: lives with daughter Other Information That Helps Us Care for You: No Feels Safe at Home: Yes Safety Concerns: Feels Safe At This Time Smoking Status: Former smoker Tobacco Type: cigarettes ; packs per day: 1 ; Years Smoked: 50 ; Do You Dip or Chew Tobacco: No ; Smoking End Date: 2007 ; Second Hand Exposure: No ; Tobacco Cessation Education Requested by Patient: No Hx Alcohol Use: No Hx Substance Use: No Review of Systems Review of Systems: All systems reviewed & are unremarkable except as noted in HPI & below Constitutional: as per Subjective / HPI Physical Exam Physical Exam: RLE NVSI +EHL/FHL/TA/GS SILT grossly, +2 DP pulse, compartments soft NT, limited range of motion of right knee with minimal pain with the exception of extreme flexion. Range of motion 0 to 85 degrees of flexion. Large effusion, no erythema or warmth Constitutional: WD/WN, vitals as above Results & Data Vital Signs (Past 12 Hours) Vital Signs Temp Pulse Resp BP BP Pulse Ox 03/20/19 07:14 36.9 C 60 18 122/70 93 03/19/19 23:28 36.7 C 66 16 126/73 95 Diagnostic Findings XR knee RT 1 or 2V routine CLINICAL HISTORY: Right knee swelling. COMPARISON: None FINDINGS: No acute fracture is noted. There is a large right knee joint effusion. No suspicious osseous lesion is present. There is marked lateral compartment joint space narrowing with osteophytosis and sclerosis. There is osteophytosis within the medial and patellofemoral compartments. A 1.8 cm calcific density projects anterior to the joint space. A 1.9 cm suprapatellar calcific density is noted. There is extensive vascular calcification. IMPRESSION: 1. No acute fracture. 2. Large right knee joint effusion. Several suspected joint bodies. 3. 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
--- NOTE | 2019-03-20 14:30 | Hospitalist Progress Note ---
Date of Service March 20, 2019 Assessment & Plan (1) Ambulatory dysfunction: Secondary to right knee hemarthrosis complicated by osteoarthritis We will get PT and OT evaluation (2) Effusion of right knee: Has been going on for the last few days and worse before admission Doubt any septic arthritis Ultrasound seems to be compatible with blood in the right knee joint Medial to patella 3.5 x 1.0 cm and laterally 7 x 2 cm Appreciate Ortho input and recommendation Likely conservative management (3) Popliteal cyst: Ultrasound of the right leg did show 5.5 x 1.3 x 2.4 cm multilobular and an echoic lesion compatible with popliteal cyst. Doubt any rupture (4) Current use of prison anticoagulation: On warfarin secondary to history of CVA INR 1.8 Hold warfarin this evening until seen and evaluated by Ortho possible joint arthrocentesis INR is 1.6 as of 03/20/2019 Ortho does not have any plan to aspirate the joint now Continue with conservative management (5) HTN (hypertension): blood pressure initially elevated upon arrival now 154/63 continue coreg, losartan monitor (6) HLD (hyperlipidemia): continue statin (7) CKD (chronic kidney disease), stage III: Cr 1.10 baseline Cr 1.5 monitor (8) History of CVA (cerebrovascular accident): continue ASA, Statin wafarin on hold obtain PT/INR in a.m-1.6. (9) DVT prophylaxis: SCD/TEDS warfarin on hold until seen by orthopedic Disposition: admit under observation to med/surg, likely discharge to acute rehab tomorrow Subjective 03/20/2019 The patient was seen and examined in medical floor in presence of the daughter She was admitted with progressive swelling of the right knee with pain Her symptoms seems to be improved as of today Review of Systems Review of Systems: All systems reviewed and are unremarkable except as noted below Musculoskeletal: + joint pain (Right knee joint is swelled, bandaged with decreasing pain on movement) Physical Exam Physical Exam: Sitting in a chair without any apparent distress Constitutional: well developed and well nourished; no acute distress Eyes: PERRL, conjunctivae normal, anicteric sclerae ENMT: external ear and nose normal, oropharynx normal Neck: trachea midline, no thyromegaly Respiratory: normal respiratory effort; no respiratory distress Auscultation: lungs clear to auscultation bilaterally Cardiovascular: Rate/Rhythm: regular rate and regular rhythm Heart Sounds: no murmur Gastrointestinal (Abdomen): Inspection/Auscultation: abdomen normal to inspection and normal bowel sounds Percussion/Palpation: abdomen soft; abdomen nontender Musculoskeletal: Right knee pain secondary to hemarthrosis Neurologic: Alert, awake and oriented x3 Lymphatic: no cervical or axillary lymphadenopathy Results & Data Vital Signs (Past 12 Hours) Vital Signs Temp Pulse Resp BP Pulse Ox 03/20/19 07:14 36.9 C 60 18 122/70 93 Laboratory Results Short CBC 03/19/19 03/20/19 Range/Units 14:17 06:54 WBC 8.59 6.28 (4.8-10.8) K/uL Hgb 12.5 11.6 L (12.0-16.0) g/dL Hct 38.0 35.6 L (37-47) % Plt Count 138 113 L (130-400) K/uL BMP 03/19/19 03/20/19 14:17 06:54 Sodium 140 140 Potassium 3.5 3.5 Chloride 108 H 110 H Carbon Dioxide 27 27 BUN 20 H 22 H Creatinine 1.10 1.12 Glucose 131 H 102 H Calcium 9.4 8.9 Liver Function 03/19/19 Range/Units 14:17 Total Bilirubin 1.0 (0.2-1) mg/dl AST 14 L (15-37) U/L ALT 17 (12-78) U/L Alkaline Phosphatase 55 (45-117) U/L Albumin 3.4 (3.4-5.0) gm/dl Medications Administered Current Inpatient Medications Acetaminophen (Tylenol) 650 mg PO Q4H PRN PRN Reason: pain/fever Stop: 04/18/19 19:43 Last Admin: 03/19/19 23:33 Dose: 650 mg Documented by: Ascorbic Acid (Vitamin C) 500 mg PO BIDM [facility] Stop: 04/19/19 07:59 Last Admin: 03/20/19 08:55 Dose: 500 mg Documented by: Aspirin (Aspirin Chew) 81 mg PO Q2D@0900 [facility] Stop: 04/20/19 08:59 Atorvastatin Calcium (Lipitor) 20 mg PO QDD [facility] Stop: 04/19/19 16:29 Carvedilol (Coreg) 12.5 mg PO BID [facility] Stop: 04/18/19 20:59 Last Admin: 03/20/19 08:55 Dose: 12.5 mg Documented by: Lactobacillus Acidophilus (Floranex) 4 tab PO Q2D@0900 [facility] Stop: 04/19/19 08:59 Last Admin: 03/20/19 08:55 Dose: 4 tab Documented by: Losartan Potassium (Cozaar) 100 mg PO QAM [facility] Stop: 04/19/19 08:59 Last Admin: 03/20/19 08:55 Dose: 100 mg Documented by: Multivitamins (Multivitamin Tab) 1 tab PO QAM [facility] Stop: 04/19/19 08:59 Last Admin: 03/20/19 08:55 Dose: 1 tab Documented by: Ondansetron HCl (Zofran) 4 mg IV Q6H PRN PRN Reason: Nausea Stop: 04/18/19 19:43 Polyethylene Glycol (Miralax Powder Packet) 17 gm PO DAILY PRN PRN Reason: Constipation Stop: 04/18/19 19:43 Vitamin B Complex (Vitamin B Complex) 1 tab PO QDD [facility] Stop: 04/19/19 16:29 Vitamin E (Vitamin E) 400 units PO QAM [facility] Stop: 04/19/19 08:59 Last Admin: 03/20/19 08:55 Dose: 400 units Documented by: (1) Popliteal cyst Laterality: right Qualified Code(s): M71.21 - Synovial cyst of popliteal space [Tian], right knee
[2019-03-20] MEDS: ATORVASTATIN 20 MG TAB PO SCH (17:36)
[2019-03-20] MEDS: VITAMIN B COMPLEX TAB PO SCH (17:36)
[2019-03-21 05:40] LABS: INR 1.4 (0.9-1.1); Prothrombin Time 13.7 Seconds (9.0-12.0)
[2019-03-21 06:24] LABS: Lyme Ab IgG w/WB Rflx Negative (Negative); Lyme Ab IgM w/WB Rflx Negative (Negative)
[2019-03-21] MEDS: ASCORBIC ACID 500 MG TAB PO SCH ×2 (08:52→16:27)
[2019-03-21] MEDS: TOCOPHERYL, DL-ALPHA 400 UNITS CAP PO SCH (08:52)
[2019-03-21] MEDS: MULTIVITAMIN TAB PO SCH (08:52)
[2019-03-21] MEDS: carvediloL 12.5 MG TAB PO SCH ×2 (08:53→20:20)
[2019-03-21] MEDS: LIDOCAINE 5% 1 PATCH TD SCH (08:53)
[2019-03-21] MEDS: LOSARTAN POTASSIUM 50 MG TAB PO SCH (08:54)
[2019-03-21] MEDS ORDERED: ASPIRIN 81 MG CHEW PO SCH (09:00)
[2019-03-21] MEDS: VITAMIN B COMPLEX TAB PO SCH (16:27)
[2019-03-21] MEDS: ATORVASTATIN 20 MG TAB PO SCH (16:27)
--- NOTE | 2019-03-21 16:35 | Hospitalist Progress Note ---
Date of Service March 21, 2019 Assessment & Plan (1) Ambulatory dysfunction: Secondary to right knee hemarthrosis complicated by osteoarthritis We will get PT and OT evaluation Improving mobility with PT and OT Awaiting rehab placement (2) Effusion of right knee: Has been going on for the last few days and worse before admission Doubt any septic arthritis Ultrasound seems to be compatible with blood in the right knee joint Medial to patella 3.5 x 1.0 cm and laterally 7 x 2 cm Appreciate Ortho input and recommendation Likely conservative management Clinically a lot better we will continue conservative management (3) Popliteal cyst: Ultrasound of the right leg did show 5.5 x 1.3 x 2.4 cm multilobular and an echoic lesion compatible with popliteal cyst. Doubt any rupture (4) Current use of half-way anticoagulation: On warfarin secondary to history of CVA INR 1.8 Hold warfarin this evening until seen and evaluated by Ortho possible joint arthrocentesis INR is 1.6 as of 03/20/2019 Ortho does not have any plan to aspirate the joint now Continue with conservative management INR is 1.4 today We will start Coumadin from Tomorrow (5) HTN (hypertension): blood pressure initially elevated upon arrival now 154/63 continue coreg, losartan monitor (6) HLD (hyperlipidemia): continue statin (7) CKD (chronic kidney disease), stage III: Cr 1.10 baseline Cr 1.5 monitor (8) History of CVA (cerebrovascular accident): continue ASA, Statin wafarin on hold obtain PT/INR in a.m-1.4 Will start Coumadin from tomorrow (9) DVT prophylaxis: SCD/TEDS warfarin on hold until seen by orthopedic Disposition: admit under observation to med/surg, likely discharge to acute rehab tomorrow Subjective 03/20/2019 The patient was seen and examined in medical floor in presence of the daughter She was admitted with progressive swelling of the right knee with pain Her symptoms seems to be improved as of today 03/21/2019 Patient was seen and examined in medical floor She has been stable and complains less pain involving the right knee She is participating in physical therapy and feels ready to be discharged Denies any other symptoms Review of Systems Review of Systems: All systems reviewed and are unremarkable except as noted below Musculoskeletal: Minimal swelling and pain in the right knee Physical Exam Physical Exam: Sitting on a chair without any symptoms Constitutional: well developed and well nourished; no acute distress Eyes: PERRL, conjunctivae normal, anicteric sclerae ENMT: external ear and nose normal, oropharynx normal Neck: trachea midline, no thyromegaly Respiratory: normal respiratory effort; no respiratory distress Auscultation: lungs clear to auscultation bilaterally Cardiovascular: Rate/Rhythm: regular rate and regular rhythm Heart Sounds: no murmur Gastrointestinal (Abdomen): Inspection/Auscultation: abdomen normal to inspection and normal bowel sounds Percussion/Palpation: abdomen soft; abdomen nontender Musculoskeletal: Right knee remains minimally swelled without any local warmth and movement of the right knee seems to be less painful Lymphatic: no cervical or axillary lymphadenopathy Results & Data Vital Signs (Past 12 Hours) Vital Signs Temp Pulse Pulse Resp BP Pulse Ox 03/21/19 15:21 36.5 C 72 18 147/71 H 95 03/21/19 07:35 36.6 C 74 16 156/78 H 94 Medications Administered Current Inpatient Medications Acetaminophen (Tylenol) 650 mg PO Q4H PRN PRN Reason: pain/fever Stop: 04/18/19 19:43 Last Admin: 03/19/19 23:33 Dose: 650 mg Documented by: Ascorbic Acid (Vitamin C) 500 mg PO BIDM [facility] Stop: 04/19/19 07:59 Last Admin: 03/21/19 16:27 Dose: 500 mg Documented by: Aspirin (Aspirin Chew) 81 mg PO Q2D@0900 [facility] Stop: 04/20/19 08:59 Last Admin: 03/21/19 08:55 Dose: 81 mg Documented by: Atorvastatin Calcium (Lipitor) 20 mg PO QDD [facility] Stop: 04/19/19 16:29 Last Admin: 03/21/19 16:27 Dose: 20 mg Documented by: Carvedilol (Coreg) 12.5 mg PO BID [facility] Stop: 04/18/19 20:59 Last Admin: 03/21/19 08:53 Dose: 12.5 mg Documented by: Lactobacillus Acidophilus (Floranex) 4 tab PO Q2D@0900 [facility] Stop: 04/19/19 08:59 Last Admin: 03/20/19 08:55 Dose: 4 tab Documented by: Lidocaine (Lidoderm 5%) 1 patch TD QAM [facility] Stop: 04/20/19 08:59 Last Admin: 03/21/19 08:53 Dose: 1 patch Documented by: Losartan Potassium (Cozaar) 100 mg PO QAM [facility] Stop: 04/19/19 08:59 Last Admin: 03/21/19 08:54 Dose: 100 mg Documented by: Miscellaneous (Remove Lidoderm Patch) 1 ea N/A DAILY@2100 [facility] Stop: 04/20/19 20:59 Multivitamins (Multivitamin Tab) 1 tab PO QAM [facility] Stop: 04/19/19 08:59 Last Admin: 03/21/19 08:52 Dose: 1 tab Documented by: Ondansetron HCl (Zofran) 4 mg IV Q6H PRN PRN Reason: Nausea Stop: 04/18/19 19:43 Polyethylene Glycol (Miralax Powder Packet) 17 gm PO DAILY PRN PRN Reason: Constipation Stop: 04/18/19 19:43 Vitamin B Complex (Vitamin B Complex) 1 tab PO QDD [facility] Stop: 04/19/19 16:29 Last Admin: 03/21/19 16:27 Dose: 1 tab Documented by: Vitamin E (Vitamin E) 400 units PO QAM [facility] Stop: 04/19/19 08:59 Last Admin: 03/21/19 08:52 Dose: 400 units Documented by: (1) Popliteal cyst Laterality: right Qualified Code(s): M71.21 - Synovial cyst of popliteal space [Tian], right knee
[2019-03-22 05:23] LABS: Basophils # (auto) 0.04 K/uL (0-0.2); Basophils % (auto) 0.5 %; Eosinophils # (auto) 0.14 K/uL (0-0.5); Eosinophils % (auto) 1.7 %; Hematocrit (blood only) 36.2 % (37-47); Hemoglobin 11.9 g/dL (12.0-16.0); Immature Granulocytes # (auto) 0.01 K/uL (0.00-0.02); Immature Granulocytes % (auto) 0.1 %; Lymphocytes # (auto) 1.49 K/uL (1.2-3.4); Lymphocytes % (auto) 18.5 %; Mean Corpuscular Hemoglobin 29.5 pg (25-34); Mean Corpuscular Hgb Conc 32.9 g/dL (32-36); Mean Corpuscular Volume 89.8 fL (80-100); Mean Platelet Volume 11.5 fL (7.4-10.4); Monocytes # (auto) 0.85 K/uL (0.11-0.59); Monocytes % (auto) 10.6 %; Neutrophils # (auto) 5.51 K/uL (1.4-6.5); Neutrophils % (auto) 68.6 %; Platelet Count 164 K/uL (130-400); RDW Coefficient of Variation 14.5 % (11.5-14.5); RDW Standard Deviation 47.9 fL (36.4-46.3); Red Blood Count 4.03 M/uL (4.2-5.4); White Blood Count 8.04 K/uL (4.8-10.8)
[2019-03-22 05:29] LABS: INR 1.2 (0.9-1.1); Prothrombin Time 12.2 Seconds (9.0-12.0)
[2019-03-22] MEDS: MULTIVITAMIN TAB PO SCH (08:19)
[2019-03-22] MEDS: ASCORBIC ACID 500 MG TAB PO SCH (08:19)
[2019-03-22] MEDS: carvediloL 12.5 MG TAB PO SCH (08:19)
[2019-03-22] MEDS: LOSARTAN POTASSIUM 50 MG TAB PO SCH (08:19)
[2019-03-22] MEDS: TOCOPHERYL, DL-ALPHA 400 UNITS CAP PO SCH (08:19)
[2019-03-22] MEDS: LACTOBACILLUS ACIDOPHILUS (FLORANEX) TAB PO SCH (08:19)
[2019-03-22] MEDS: LIDOCAINE 5% 1 PATCH TD SCH (08:20)
--- NOTE | 2019-03-22 13:55 | Hospitalist Progress Note ---
Date of Service March 22, 2019 Assessment & Plan (1) Ambulatory dysfunction: Secondary to right knee hemarthrosis complicated by osteoarthritis We will get PT and OT evaluation Improving mobility with PT and OT Awaiting rehab placement Has been accepted to [facility] and will be transferred this afternoon (2) Effusion of right knee: Has been going on for the last few days and worse before admission Doubt any septic arthritis Ultrasound seems to be compatible with blood in the right knee joint Medial to patella 3.5 x 1.0 cm and laterally 7 x 2 cm Appreciate Ortho input and recommendation Likely conservative management Clinically a lot better we will continue conservative management Right knee swelling and pain are much improved Will need to continue physical therapy (3) Popliteal cyst: Ultrasound of the right leg did show 5.5 x 1.3 x 2.4 cm multilobular and an echoic lesion compatible with popliteal cyst. Doubt any rupture (4) Current use of [employer] ex[employer]ator anticoagulation: On warfarin secondary to history of CVA INR 1.8 Hold warfarin this evening until seen and evaluated by Ortho possible joint arthrocentesis INR is 1.6 as of 03/20/2019 Ortho does not have any plan to aspirate the joint now Continue with conservative management INR is 1.4 today We will start Coumadin from Tomorrow We will need to have INR checked on Monday (5) HTN (hypertension): blood pressure initially elevated upon arrival now 154/63 continue coreg, losartan monitor (6) HLD (hyperlipidemia): continue statin (7) CKD (chronic kidney disease), stage III: Cr 1.10 baseline Cr 1.5 monitor-remains stable at 1.12 (8) History of CVA (cerebrovascular accident): continue ASA, Statin wafarin on hold obtain PT/INR in a.m-1.4 Will start Coumadin from tomorrow (9) DVT prophylaxis: SCD/TEDS warfarin on hold until seen by orthopedic Disposition: admit under observation to med/surg, likely discharge to acute rehab tomorrow Discharged to [facility] today Subjective 03/20/2019 The patient was seen and examined in medical floor in presence of the daughter She was admitted with progressive swelling of the right knee with pain Her symptoms seems to be improved as of today 03/21/2019 Patient was seen and examined in medical floor She has been stable and complains less pain involving the right knee She is participating in physical therapy and feels ready to be discharged Denies any other symptoms 03/22/2019 The patient was seen and examined in medical floor She has been feeling a lot better Her knee pain and swelling are much improved She has been participating with physical therapy and she will be discharged to [facility] this afternoon Review of Systems Review of Systems: All systems reviewed and are unremarkable except as noted below Musculoskeletal: Minimal swelling and pain in the right knee Physical Exam Physical Exam: Sitting in a chair without any acute distress Constitutional: well developed and well nourished; no acute distress Eyes: PERRL, conjunctivae normal, anicteric sclerae ENMT: external ear and nose normal, oropharynx normal Neck: trachea midline, no thyromegaly Respiratory: normal respiratory effort; no respiratory distress Auscultation: lungs clear to auscultation bilaterally Cardiovascular: Rate/Rhythm: regular rate and regular rhythm Heart Sounds: no murmur Gastrointestinal (Abdomen): Inspection/Auscultation: abdomen normal to inspection and normal bowel sounds Percussion/Palpation: abdomen soft; abdomen nontender Musculoskeletal: Knee: + knee abnormal to inspection (Minimal swelling of the right knee, movement is minimally painful) Lymphatic: no cervical or axillary lymphadenopathy Results & Data Vital Signs (Past 12 Hours) Vital Signs Temp Pulse Resp BP Pulse Ox 03/22/19 07:04 37.0 C 73 16 165/78 H 90 Laboratory Results Short CBC 03/22/19 Range/Units 04:35 WBC 8.04 (4.8-10.8) K/uL Hgb 11.9 L (12.0-16.0) g/dL Hct 36.2 L (37-47) % Plt Count 164 (130-400) K/uL Medications Administered Current Inpatient Medications Acetaminophen (Tylenol) 650 mg PO Q4H PRN PRN Reason: pain/fever Stop: 04/18/19 19:43 Last Admin: 03/19/19 23:33 Dose: 650 mg Documented by: Ascorbic Acid (Vitamin C) 500 mg PO BIDM [facility] Stop: 04/19/19 07:59 Last Admin: 03/22/19 08:19 Dose: 500 mg Documented by: Aspirin (Aspirin Chew) 81 mg PO Q2D@0900 [facility] Stop: 04/20/19 08:59 Last Admin: 03/21/19 08:55 Dose: 81 mg Documented by: Atorvastatin Calcium (Lipitor) 20 mg PO QDD [facility] Stop: 04/19/19 16:29 Last Admin: 03/21/19 16:27 Dose: 20 mg Documented by: Carvedilol (Coreg) 12.5 mg PO BID [facility] Stop: 04/18/19 20:59 Last Admin: 03/22/19 08:19 Dose: 12.5 mg Documented by: Lactobacillus Acidophilus (Floranex) 4 tab PO Q2D@0900 [facility] Stop: 04/19/19 08:59 Last Admin: 03/22/19 08:19 Dose: 4 tab Documented by: Lidocaine (Lidoderm 5%) 1 patch TD QAM [facility] Stop: 04/20/19 08:59 Last Admin: 03/22/19 08:20 Dose: 1 patch Documented by: Losartan Potassium (Cozaar) 100 mg PO QAM [facility] Stop: 04/19/19 08:59 Last Admin: 03/22/19 08:19 Dose: 100 mg Documented by: Miscellaneous (Remove Lidoderm Patch) 1 ea N/A DAILY@2100 [facility] Stop: 04/20/19 20:59 Last Admin: 03/21/19 20:24 Dose: 1 ea Documented by: Multivitamins (Multivitamin Tab) 1 tab PO QAM [facility] Stop: 04/19/19 08:59 Last Admin: 03/22/19 08:19 Dose: 1 tab Documented by: Ondansetron HCl (Zofran) 4 mg IV Q6H PRN PRN Reason: Nausea Stop: 04/18/19 19:43 Polyethylene Glycol (Miralax Powder Packet) 17 gm PO DAILY PRN PRN Reason: Constipation Stop: 04/18/19 19:43 Vitamin B Complex (Vitamin B Complex) 1 tab PO QDD [facility] Stop: 04/19/19 16:29 Last Admin: 03/21/19 16:27 Dose: 1 tab Documented by: Vitamin E (Vitamin E) 400 units PO QAM [facility] Stop: 04/19/19 08:59 Last Admin: 03/22/19 08:19 Dose: 400 units Documented by: (1) Popliteal cyst Laterality: right Qualified Code(s): M71.21 - Synovial cyst of popliteal space [Tian], right knee
[2019-03-22] MEDS: VITAMIN B COMPLEX TAB PO SCH (15:43)
[2019-03-22] MEDS: ATORVASTATIN 20 MG TAB PO SCH (15:43)
--- NOTE | 2019-03-23 08:38 | Discharge Summary ---
Date of Service March 23, 2019 Admission HPI Per Admitting Provider Mrs. Adler is a pleasant 88-year-old female who has significant past medical history of CVA in 2003 with no residual deficit on warfarin, HTN, HLD, CKD stage III, aortic valve stenosis, osteoporosis, AAA, history of tobacco abuse who presents to ED secondary to severe right knee pain and inability to walk x2 days. Daughter is at bedside. Approximately 2 days ago she noted swelling of her right knee which continued to worsen. Last evening she was having significant inability to ambulate which had worsened today. Because of the pain and inability to walk EMS was called. Pain is on the front of the right knee as well as the back. Complains of fluid in the back of her knee. Pain improved with rest but made worse with any movement or walking. Has tried [id number] Tylenol with mild relief. Prior to her right knee pain she has otherwise been in her normal state of health. She lives at home with a first- floor set up with her daughter. At baseline ambulates with a walker and cane without difficulty. Denies any recent illness, fever, chills, sweats, lightheadedness, dizziness, chest pain, shortness with, palpitations, cough, hemoptysis, nausea, vomiting, abdominal pain, dysuria, increased urgency or frequency with urination. Her bowel habits are normal for her, more constipated. Appetite has been stable, no weight gain or loss denies any significant lower extremity swelling despite her right knee. She denies any recent trauma or fall. Denies ever having similar symptoms in past. In ED patient remained hemodynamically stable. Upon my evaluation blood pressure was 154/63 and temperature 37.3. 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 Right lower extremity ultrasound was negative for DVT but did reveal popliteal cyst 5 cm x 2 cm. Patient was placed in knee immobilizer which did improve symptoms. Admission Exam Per Admitting Provider Physical Exam: Constitutional: Elderly, female, WD/WN, vitals as above, NAD, sitting up in bed, pleasant, conversing easily Head: Normocephalic, Atraumatic Eyes: PERRL, conjunctivae normal, anicteric sclerae ENMT: external ear and nose normal, oropharynx normal Neck: trachea midline, no thyromegaly normal visual inspection Respiratory: normal respiratory effort, lungs clear to auscultation, no wheeze, rales, rhonchi. Normal insp/exp effort, no accessory muscle use Cardiovascular: RRR, harsh 3/6 LIZA noted precordially but maximally at RUSB, no pretibial or pedal edema Vessels: no JVD or carotid bruit Chest: normal inspection of chest Abdomen: normal bowel sounds, soft, nontender, no hepatosplenomegaly Musculoskeletal: no cyanosis or clubbing, extremities motor strength 5/5 bilateral upper extremities, inability to test right lower extremity secondary to pain, left lower extremity 4/5 Right knee with effusion, warmth, no erythema, decreased range of motion passively with flexion, right knee popliteal cyst palpated on exam Skin: no rashes, warm and dry normal turgor Neurologic: PERRL, EOMI, accommodation nl, no face palsy, no dysarthria CN's II-XI intact bilaterally and moves all extremities Psychiatric: A+Ox3, euthymic affect Lymphatic: no cervical or axillary lymphadenopathy : deferred Principal Diagnosis Right knee effusion likely secondary to hemarthrosis complicated by supratherapeutic INR, ambulatory dysfunction , history of CVA on Coumadin, hypertension Discharge Exam Constitutional well developed and well nourished; no acute distress Eyes PERRL, conjunctivae normal, anicteric sclerae ENMT external ear and nose normal, oropharynx normal Neck trachea midline, no thyromegaly Respiratory normal respiratory effort; no respiratory distress Auscultation: lungs clear to auscultation bilaterally Cardiovascular Rate/Rhythm: regular rate and regular rhythm Heart Sounds: no murmur Gastrointestinal (Abdomen) Inspection/Auscultation: abdomen normal to inspection and normal bowel sounds Percussion/Palpation: abdomen soft; abdomen nontender Musculoskeletal Knee: + knee abnormal to inspection (Minimal swelling of the right knee, movement is minimally painful) Lymphatic no cervical or axillary lymphadenopathy Discharge Data Allergies Allergy/AdvReac Type Severity Reaction Status Date / Time doxycycline Allergy Severe SWELLING Verified 03/19/19 14:47 Penicillins Allergy Severe ANAPHYLAXIS Verified 03/19/19 14:47 Consultations 03/19/19 17:26 ED Decision to Admit Stat 03/19/19 18:22 Consult Orthopedic Surgery Routine 03/19/19 19:44 Consult Case Management - Discharge Planning Routine Ordered Studies 03/19/19 14:08 US venous doppler LE RT Stat 03/19/19 18:25 US extremity non-vascular ltd Urgent Hospital Course (1) Ambulatory dysfunction: Secondary to right knee hemarthrosis complicated by osteoarthritis We will get PT and OT evaluation Improving mobility with PT and OT Awaiting rehab placement Has been accepted to [facility] and will be transferred this afternoon (2) Effusion of right knee: Has been going on for the last few days and worse before admission Doubt any septic arthritis Ultrasound seems to be compatible with blood in the right knee joint Medial to patella 3.5 x 1.0 cm and laterally 7 x 2 cm Appreciate Ortho input and recommendation Likely conservative management Clinically a lot better we will continue conservative management Right knee swelling and pain are much improved Will need to continue physical therapy (3) Popliteal cyst: Ultrasound of the right leg did show 5.5 x 1.3 x 2.4 cm multilobular and an echoic lesion compatible with popliteal cyst. Doubt any rupture (4) Current use of [facility] anticoagulation: On warfarin secondary to history of CVA INR 1.8 Hold warfarin this evening until seen and evaluated by Ortho possible joint arthrocentesis INR is 1.6 as of 03/20/2019 Ortho does not have any plan to aspirate the joint now Continue with conservative management INR is 1.4 today We will start Coumadin from Tomorrow We will need to have INR checked on Monday (5) HTN (hypertension): blood pressure initially elevated upon arrival now 154/63 continue coreg, losartan monitor (6) HLD (hyperlipidemia): continue statin (7) CKD (chronic kidney disease), stage III: Cr 1.10 baseline Cr 1.5 monitor-remains stable at 1.12 (8) History of CVA (cerebrovascular accident): continue ASA, Statin wafarin on hold obtain PT/INR in a.m-1.4 Will start Coumadin from tomorrow (9) DVT prophylaxis: SCD/TEDS warfarin on hold until seen by orthopedic Disposition: admit under observation to med/surg, likely discharge to acute rehab tomorrow Discharged to [facility] today Total Time Total Time Spent Total Time Spent (In Minutes): 35 minutes Total Time Includes: Examination of the Patient, Discharge Planning, Medication Reconciliation and Communication With Other Providers Discharge Plan Discharge Items Patient Disposition: Transfer Alf Fac Reason For Visit: R KNEE EFFUSION, AMBULATORY DYSFUNCTION Discharge Diagnosis: Right knee effusion likely secondary to hemarthrosis complicated by supratherapeutic INR, ambulatory dysfunction , history of CVA on Coumadin, hypertension Condition on Discharge: Good Activity: Resume your previous activity Non-emergency contact: Primary Care Provider Call non-emergency contact if: you have any medication questions and your sympt oms worsen Follow-up/Referrals: Walter Beckford DO [Primary Care Provider] - 03/29/19 2:45 pm Chilango Flores DO [Physician] - (Please make an appointment with orthopedic surgeon in 3 to 4 weeks) Diet: Heart Healthy Addtl Attending Provider Instructions: Please take precaution to avoid falls Continue with PT and OT Pending Studies at Discharge: No Stand-Alone Forms: My [facility] Skilled Items Patient informed of condition?: Yes DNR: No Discharge Level of Care: Skilled Communicable Disease: No Discharge Prognosis: Stable Lines: None Urinary Catheter: No Medications and DC Order Prescriptions: Continued multivitamin Tablet 1 tab PO QAM RF: 0 atorvastatin 20 mg tablet 20 mg PO QDD RF: 0 carvedilol 12.5 mg tablet 12.5 mg PO BID RF: 0 glucosamine sulfate [Glucosamine] 500 mg Tablet 500 mg PO BIDM RF: 0 acetaminophen [Tylenol Extra Strength] 500 mg Tablet 500 mg PO Q6H PRN (Reason: Pain) RF: 0 ascorbic acid (vitamin C) [Vitamin C] 500 mg Tablet 500 mg PO BIDM RF: 0 warfarin 2 mg tablet 2 mg PO HS RF: 0 aspirin 81 mg Tablet,Chewable 81 mg PO Q2D RF: 0 vitamin B complex Tablet 1 tab PO QDD RF: 0 losartan 100 mg tablet 100 mg PO QAM RF: 0 vitamin E 400 unit Capsule 400 unit PO QAM RF: 0 fluoride (sodium) [Denta 5000 Plus] 1.1 % Cream 1 applic DENTAL DAILY RF: 0 Probiotic 3 billion cell Capsule 3,000 mmu cells PO .Q2D.QAM RF: 0 Salonpas Deep Relieving 3.1-15-10 % Gel 1 ea TOPICAL UD RF: 0 Discharge Orders: Discharge Order (Routine); Ordered 03/22/19 Ordered By: Jonah Dsouza Admission Data Admit Date/Time: 03/19/19 18:22 Attending Provider: Jonah Dsouza Admit Provider: Jose Sequeira Primary Care Provider: Walter Beckford Other Providers: [facility] ; Jose Sequeira ; Reid Weber ; Bartolo Dhillon at [place] Other Interventions: Discharge Summary Assessment (RN) Last Done: 03/22/19 16:22 DC Date/Time DO NOT enter until pt leaves facility: 03/22/19 17:15
== END 2019-03-22 17:15 ==
LOC: ED 13:21 → 3W 13:21 → SUATTDRO 18:22 → 3W 19:29

== ENCOUNTER 2021-06-14 15:12 | Observation (INO) ==
--- NOTE | 2021-06-14 15:22 | Emergency Department Note ---
Impression & Plan History of CVA (cerebrovascular accident), UTI (urinary tract infection), Acute confusion, Fall, Laceration ED Provider Note NAME: TONY GANDARA AGE: 89 SEX: F : 1930 ARRIVES VIA: Ambulance INFORMANT: Patient ED PROVIDER(S): Rafita Mckinnon DO CHIEF COMPLAINT: fall hit head HPI: Patient is an 89-year-old female who presents to the ER with a past medical history of CVA, hypertension, hyperlipidemia, CKD and abdominal aortic aneurysm for mechanical fall. She notes that she was in the kitchen and she slipped on water on the floor and fell back and hit the cabinet. She hit the back of her head. She did not pass out. She remembers the entire event. She used to take Coumadin but takes no blood thinners with the exception of aspirin at this point. She describes her head pain is a 0 10. If you do touch it she notes that is when it bothers her. No weakness or numbness in her arms or legs which is new. No other exacerbating or remitting factors. Family later arrives and notes that last Monday she was confused and slow with her thought process. She confirms this. She notes this lasted for several hours and then resolved. She denies any focal weakness or numbness. She had trouble thinking and notes she felt foggy. They are concerned that she may have had a stroke. ROS: See above HPI for pertinent positives & negatives. A total of 10 systems reviewed and were otherwise negative. PAST MEDICAL HISTORY:See Below PAST SURGICAL HISTORY:See Below FAMILY HISTORY:See Below SOCIAL HISTORY:See Below HOME MEDICATIONS:See Below ALLERGIES:See Below VITALS:See Below PHYSICAL EXAMINATION: GENERAL: alert, well appearing, well nourished, no distress, non-toxic HEAD: normal cephalic, 1 cm laceration to posterior occiput on the right side. No active bleeding EYE EXAM: normal conjunctiva, PERRL and EOM's grossly intact OROPHARYNX: no exudate, no erythema, lips, buccal mucosa, and tongue normal and mucous membranes are moist NECK: supple, no nuchal rigidity, no adenopathy, non-tender CHEST: stable to compression anteriorly and posteriorly LUNGS: clear to auscultation. Normal chest wall mechanics HEART: no murmurs, S1 normal and S2 normal ABDOMEN: abdomen soft, non-tender, normo-active bowel sounds, no masses, no rebound or guarding. PELVIS: stable to compression anteriorly and posteriorly BACK: Back is symmetrical on inspection and there is no deformity, no midline tenderness, no CVA tenderness. UPPER EXTREMITIES: full active and passive range of motion of all joints without tenderness to palpation LOWER EXTREMITIES: full active and passive range of motion of all joints without tenderness to palpation NEURO EXAM: Normal sensorium, cranial nerves II-XII grossly intact, normal speech, no gross weakness of arms, no gross weakness of legs. GCS: 15. MEDICAL DECISION MAKING: Patient is an 89-year-old female who presents ER for above-stated complaint. IV was established blood work was obtained. Labs show mild leukocytosis 11,000. No significant anemia. BMP with a creatinine 1.3. LFTs bilirubin lipase is unremarkable. UA was contaminated with multiple epithelial cells. Covid was n egative. With the nitrates and the UA did elect to treat with IV Rocephin. CT of the head showed chronic/old infarcts but these are new from previous CTs. With family's concern for possible stroke to the left discussed with hospitalist for observation and additional studies. Triage Nursing notes reviewed. Limited review of prior medical records performed Vital Signs: reviewed and remarkable for no significant abnormalities Differential diagnosis: Differential diagnoses include major intracranial, cervical, spinal, thoracic, abdominal, pelvic and neurologic injury. Fracture, contusion, sprain, strain, laceration, abrasions included as well. ER treatment provided: See below Diagnostics interpreted by me: Cardiac Monitoring: An order was placed for continuous cardiac monitoring. The monitor shows a rate of 92 with sinus rhythm. Laboratory studies: As stated above and show below. Imaging studies: CT head and cervical spine was negative Consultation(s): Discussed with Jose Barnes for further evaluation Procedures: Dermabond application: 1 cm laceration to the right posterior occiput. Verbal consent obtained after explanation of the risks and benefits of dermabond versus traditional suturing technique. The patient/parent chose dermabond closure. The wound was irrigated copiously with saline and betadine in the standard fashion. Wound explored for foreign bodies. The wound edges were approximated and dermabond applied in the standard fashion. Excellent cosmetic appearance and hemostasis achieved. The patient tolerated the procedure well and there were no complications. Critical Care: None Past Med/Surg History Medical History (Updated 06/14/21 @ 20:43 by Rafita Mckinnon DO) AAA (abdominal aortic aneurysm) CKD (chronic kidney disease), stage III History of CVA (cerebrovascular accident) History of tobacco abuse HLD (hyperlipidemia) HTN (hypertension) Osteoporosis Stroke Surgical History History of cataract surgery History of tonsillectomy Family History Father , 53 No problems noted. Mother , 93 PMR (polymyalgia rheumatica) Other No pertinent family history in first degree relatives Social History Smoking Status: Former smoker packs per day: 1; Years Smoked: 50; Second Hand Exposure: No; Hx Alcohol Use: No Hx Substance Use: No Preferred Language: Bulgarian Communication Ability: Effective Client Partner Required: No Beliefs That Will Affect Care: None marital status: Current Living Situation: Family Current Living Situation Comment: lives with daughter Feels Safe at Home: Yes Assistive Devices: Glasses and Walker Allergies Allergies Allergy/AdvReac Type Severity Reaction Status Date / Time doxycycline Allergy Severe SWELLING Verified 06/14/21 16:41 Penicillins Allergy Severe ANAPHYLAXIS Verified 06/14/21 16:41 Home Meds Home Medications Medication Instructions Recorded Confirmed acetaminophen 500 mg tablet 500 mg PO UD 03/19/19 06/14/21 (Tylenol Extra Strength) ascorbic acid (vitamin C) 500 mg 500 mg PO DAILY 03/19/19 06/14/21 tablet (Vitamin C) aspirin 81 mg chewable tablet 81 mg PO QAM 03/19/19 06/14/21 atorvastatin 20 mg tablet 20 mg PO QDD 03/19/19 06/14/21 carvedilol 12.5 mg tablet 12.5 mg PO BID 03/19/19 06/14/21 fluoride (sodium) 1.1 % dental 1 applic DENTAL DAILY 03/19/19 06/14/21 cream (Denta 5000 Plus) lactobacillus combination no.4 3 3,000 mmu cells PO .Q2D.QAM 03/19/19 06/14/21 billion cell capsule (Probiotic) losartan 100 mg tablet 100 mg PO QAM 03/19/19 06/14/21 multivitamin 1 tab PO QAM 03/19/19 06/14/21 vitamin B complex 1 tab PO QDD 03/19/19 06/14/21 vitamin E 400 unit capsule 400 unit PO QAM 03/19/19 06/14/21 diclofenac sodium 1 % topical gel 2 g TOPICAL QID PRN 06/14/21 06/14/21 docusate sodium 100 mg capsule 100 mg PO BID PRN 06/14/21 06/14/21 glucosamine sulf dipot 1 cap PO DAILY 06/14/21 06/14/21 chlr,msm,chond 550 mg-C 30 mg-behzad 1 mg capsule (Glucosamine Chondroitin) hydrochlorothiazide 25 mg tablet 25 mg PO QAM 06/14/21 06/14/21 vit C 250 mg-vit E 90 mg-zinc 40 1 tab PO BID 06/14/21 06/14/21 mg-copper 1 [id number] capsule (PreserVision AREDS-2) Results & Data (ED) Vital Signs Vital Signs - 24 hr 06/14/21 15:21 06/14/21 16:02 Temperature 37.0 C Temperature Source Oral Pulse Rate [Finger] 101 H Respiratory Rate 16 18 Blood Pressure [Left Arm] 145/79 H Blood Pressure Mean [Left Arm] 101 Pulse Oximetry 98 98 Oxygen Delivery Method Room Air Sepsis New/Unexplained Change in Mental Status No Sepsis Action Taken by Nursing No Action Required Laboratory Data Result diagrams: 06/14/21 16:00 06/14/21 16:00 Lab Results 06/14/21 06/14/21 06/14/21 Range/Units 16:00 16:00 17:45 WBC 11.09 H (4.8-10.8) K/uL RBC 4.23 (4.2-5.4) M/uL Hgb 13.2 (12.0-16.0) g/dL Hct 40.4 (37-47) % MCV 95.5 (80-100) fL MCH 31.2 (25-34) pg MCHC 32.7 (32-36) g/dL RDW Std Deviation 50.5 H (36.4-46.3) fL RDW Coeff of Ele 14.6 H (11.5-14.5) % Plt Count 172 (130-400) K/uL MPV 11.7 H (7.4-10.4) fL Immature Gran % (Auto) 0.5 % Neut % (Auto) 76.8 % Lymph % (Auto) 13.6 % [place] % (Auto) 5.0 % Eos % (Auto) 3.8 % Baso % (Auto) 0.3 % Neut # (Auto) 8.52 H (1.4-6.5) K/uL Lymph # (Auto) 1.51 (1.2-3.4) K/uL [place] # (Auto) 0.56 (0.11-0.59) K/uL Eos # (Auto) 0.42 (0-0.5) K/uL Baso # (Auto) 0.03 (0-0.2) K/uL Immature Gran # (Auto) 0.05 H (0.00-0.02) K/uL Sodium 139 (136-145) mmol/L Potassium 3.5 (3.5-5.1) mmol/L Chloride 107 (98-107) mmol/L Carbon Dioxide 25 (21-32) mmol/L Anion Gap 7 (3-11) BUN 36 H (6-23) mg/dl Creatinine 1.30 H (0.6-1.2) mg/dl Est Cr Clr Drug Dosing Not Reportable Est GFR ( Amer) 42.4 ml/min Est GFR (Non-Af Amer) 36.6 ml/min BUN/Creatinine Ratio 27.7 H (10-20) Glucose 125 H (70-99(Fasting)) mg/dl Calcium 9.8 (8.5-10.1) mg/dl Total Bilirubin 0.4 (0.2-1.0) mg/dl AST 23 (13-39) U/L ALT 16 (7-52) U/L Alkaline Phosphatase 55 (34-104) U/L Total Protein 6.9 (6.0-8.3) gm/dl Albumin 3.8 (3.4-5.0) gm/dl Globulin 3.1 (2.5-4.0) gm/dl Albumin/Globulin Ratio 1.2 (0.9-2) Lipase 25 (11-82) U/L Urine Color Urine Appearance (Clear) Urine pH (4.5-7.5) Ur Specific [place] (1.000-1.030) Urine Protein (Negative) Urine Glucose (UA) (Negative) Urine Ketones (Negative) Urine Blood (Negative) Urine Nitrite (Negative) Urine Bilirubin (Negative) Urine Urobilinogen (Negative) Ur Leukocyte Esterase (Negative) Urine WBC (Auto) (0-5) /hpf Urine RBC (Auto) (0-4) /hpf U Hyaline Cast (Auto) (0-5) /lpf U Epithel Cells (Auto) (0-5) /lpf Urine Bacteria (Auto) (Negative) SARS-CoV-2, RNA, NAAT NEGATIVE (NEGATIVE) 06/14/21 Range/Units Unknown WBC (4.8-10.8) K/uL RBC (4.2-5.4) M/uL Hgb (12.0-16.0) g/dL Hct (37-47) % MCV (80-100) fL MCH (25-34) pg MCHC (32-36) g/dL RDW Std Deviation (36.4-46.3) fL RDW Coeff of Ele (11.5-14.5) % Plt Count (130-400) K/uL MPV (7.4-10.4) fL Immature Gran % (Auto) % Neut % (Auto) % Lymph % (Auto) % [place] % (Auto) % Eos % (Auto) % Baso % (Auto) % Neut # (Auto) (1.4-6.5) K/uL Lymph # (Auto) (1.2-3.4) K/uL [place] # (Auto) (0.11-0.59) K/uL Eos # (Auto) (0-0.5) K/uL Baso # (Auto) (0-0.2) K/uL Immature Gran # (Auto) (0.00-0.02) K/uL Sodium (136-145) mmol/L Potassium (3.5-5.1) mmol/L Chloride (98-107) mmol/L Carbon Dioxide (21-32) mmol/L Anion Gap (3-11) BUN (6-23) mg/dl Creatinine (0.6-1.2) mg/dl Est Cr Clr Drug Dosing Est GFR ( Amer) ml/min Est GFR (Non-Af Amer) ml/min BUN/Creatinine Ratio (10-20) Glucose (70-99(Fasting)) mg/dl Calcium (8.5-10.1) mg/dl Total Bilirubin (0.2-1.0) mg/dl AST (13-39) U/L ALT (7-52) U/L Alkaline Phosphatase (34-104) U/L Total Protein (6.0-8.3) gm/dl Albumin (3.4-5.0) gm/dl Globulin (2.5-4.0) gm/dl Albumin/Globulin Ratio (0.9-2) Lipase (11-82) U/L Urine Color Yellow Urine Appearance Cloudy A (Clear) Urine pH 5.0 (4.5-7.5) Ur Specific [place] 1.015 (1.000-1.030) Urine Protein Negative (Negative) Urine Glucose (UA) Negative (Negative) Urine Ketones Negative (Negative) Urine Blood Negative (Negative) Urine Nitrite Positive A (Negative) Urine Bilirubin Negative (Negative) Urine Urobilinogen Negative (Negative) Ur Leukocyte Esterase 2+ H (Negative) Urine WBC (Auto) >30 H (0-5) /hpf Urine RBC (Auto) 0-4 (0-4) /hpf U Hyaline Cast (Auto) 1-5 (0-5) /lpf U Epithel Cells (Auto) >30 H (0-5) /lpf Urine Bacteria (Auto) 4+ H (Negative) SARS-CoV-2, RNA, NAAT (NEGATIVE) Administered Medications Discontinued Medications Sodium Chloride (Nss) 500 mls @ 999 mls/hr IV .Q31M ONE Stop: 06/14/21 16:15 Last Infusion: 06/14/21 16:43 Dose: 0 mls/hr Documented by: [id number] Admin: 06/14/21 16:03 Dose: 999 mls/hr Documented by: [id number] Ceftriaxone Sodium (Rocephin) 1,000 mg in 50 mls @ 100 mls/hr IV NOW STA Stop: 06/14/21 17:56 Last Infusion: 06/14/21 19:11 Dose: 0 mls/hr Documented by: [id number] Admin: 06/14/21 18:36 Dose: 100 mls/hr Documented by: [id number] Imaging Data Radiologist's Impression: Cervical Spine CT 06/14/21 15:18 CT cervical spine wo con CLINICAL HISTORY: fall hit head TECHNIQUE: Multidetector row helical CT of the cervical spine was performed without administration of intravenous contrast. Coronal and sagittal reformations were obtained. Automated dose lowering techniques and/or adjustment according to patient size were utilized for this exam. Comparison: None available at the time of this dictation. FINDINGS: No acute fractures or subluxations are identified. Degenerative changes are seen in the visualized spine. The alignment is normal. Biapical scarring is seen in the lungs. IMPRESSION: No evidence of acute bony injury. ACT 112: Negative or not required by law. Electronically signed by: Darien Troncoso M.D. 06/14/2021 4:[address] 06/14/21 15:18 CT head/brain wo con CLINICAL HISTORY: 89 years-old Female with fall hit head. Acute head trauma status post fall TECHNIQUE: Multiple axial CT images of the head were obtained without contrast. A dose lowering technique was utilized adhering to the principles of ALARA. CT DOSE: 1019.88 mGy.cm COMPARISON: Head CT 12/11/2008 FINDINGS: No acute intracranial hemorrhage, midline shift, intracranial mass, hydrocephalus, territorial ischemia or abnormal extra-axial collection. Age- related involutional changes with ex vacuo ventriculomegaly. Chronic appearing lacunar infarcts of the basal ganglia with chronic left cerebellar infarcts, new from prior. The study is mildly motion degraded. Cerebral vascular calcifications. The calvarium is intact. Prior bilateral lens repair. The paranasal sinuses, mastoid air cells, and middle ear cavities are clear. IMPRESSION: 1. No acute intracranial abnormality or calvarial fracture. 2. Age-related involutional changes with chronic microvascular ischemic disease. 3. Chronic lacunar infarcts of the basal ganglia with chronic appearing left cerebellar infarcts, new from the 2008 comparison. ACT 112: Negative or not required by law. The above report was generated using voice recognition software. It may contain grammatical, syntax or spelling errors. Electronically signed by: Remigio Friedman M.D. 06/14/2021 4:28 PM Discharge Plan Visit Data Chief Complaint: Fall Stated Complaint: Fall from chair ED Provider: Rafita Mckinnon Discharge Problem: History of CVA (cerebrovascular accident), UTI (urinary tract infection), Acute confusion, Fall, Laceration Forms Stand Alone Forms: [employer] Prescriptions Prescriptions: No Action multivitamin Tablet 1 tab PO QAM RF: 0 atorvastatin 20 mg tablet 20 mg PO QDD RF: 0 carvedilol 12.5 mg tablet 12.5 mg PO BID RF: 0 acetaminophen [Tylenol Extra Strength] 500 mg Tablet 500 mg PO UD RF: 0 ascorbic acid (vitamin C) [Vitamin C] 500 mg Tablet 500 mg PO DAILY RF: 0 aspirin 81 mg Tablet,Chewable 81 mg PO QAM RF: 0 vitamin B complex Tablet 1 tab PO QDD RF: 0 losartan 100 mg tablet 100 mg PO QAM RF: 0 vitamin E 400 unit Capsule 400 unit PO QAM RF: 0 fluoride (sodium) [Denta 5000 Plus] 1.1 % Cream 1 applic DENTAL DAILY RF: 0 Probiotic 3 billion cell Capsule 3,000 mmu cells PO .Q2D.QAM RF: 0 hydrochlorothiazide 25 mg tablet 25 mg PO QAM RF: 0 docusate sodium 100 mg Capsule 100 mg PO BID PRN (Reason: Constipation) RF: 0 diclofenac sodium 1 % Gel 2 g TOPICAL QID PRN (Reason: Pain) RF: 0 PreserVision AREDS-2 250-90-40-1 mg Capsule 1 tab PO BID RF: 0 Glucosamine Chondroitin 550-30-1 mg Capsule 1 cap PO DAILY RF: 0 Referrals Referrals: Walter Beckford DO [Physician] -
[2021-06-14] MEDS ORDERED: SODIUM CHLORIDE 0.9% 500 ML IV ONE (15:45)
[2021-06-14 16:21] LABS: Basophils # (auto) 0.03 K/uL (0-0.2); Basophils % (auto) 0.3 %; Eosinophils # (auto) 0.42 K/uL (0-0.5); Eosinophils % (auto) 3.8 %; Hematocrit (blood only) 40.4 % (37-47); Hemoglobin 13.2 g/dL (12.0-16.0); Immature Granulocytes # (auto) 0.05 K/uL (0.00-0.02); Immature Granulocytes % (auto) 0.5 %; Lymphocytes # (auto) 1.51 K/uL (1.2-3.4); Lymphocytes % (auto) 13.6 %; Mean Corpuscular Hemoglobin 31.2 pg (25-34); Mean Corpuscular Hgb Conc 32.7 g/dL (32-36); Mean Corpuscular Volume 95.5 fL (80-100); Mean Platelet Volume 11.7 fL (7.4-10.4); Monocytes # (auto) 0.56 K/uL (0.11-0.59); Neutrophils # (auto) 8.52 K/uL (1.4-6.5); Neutrophils % (auto) 76.8 %; Platelet Count 172 K/uL (130-400); RDW Coefficient of Variation 14.6 % (11.5-14.5); RDW Standard Deviation 50.5 fL (36.4-46.3); Red Blood Count 4.23 M/uL (4.2-5.4); White Blood Count 11.09 K/uL (4.8-10.8)
--- NOTE | 2021-06-14 16:28 | CT Scan Report ---
CT cervical spine wo con CLINICAL HISTORY: fall hit head TECHNIQUE: Multidetector row helical CT of the cervical spine was performed without administration of intravenous contrast. Coronal and sagittal reformations were obtained. Automated dose lowering techn iques and/or adjustment according to patient size were utilized for this exam. Comparison: None available at the time of this dictation. FINDINGS: No acute fractures or subluxations are identified. Degenerative changes are seen in the visualized sp ine. The alignment is normal. Biapical scarring is seen in the lungs. IMPRESSION: No evidence of acute bony injury. ACT 112: Negative or not required by law. Electronically signed by: Darien Troncoso M.D. 06/14/2021 4:26 PM
--- NOTE | 2021-06-14 16:30 | CT Scan Report ---
CT head/brain wo con CLINICAL HISTORY: 89 years-old Female with fall hit head. Acute head trauma status post fall TECHNIQUE: Multiple axial CT images of the head were obtained without contrast. A dose lowering tech nique was utilized adhering to the principles of ALARA. CT DOSE: 1019.88 mGy.cm COMPARISON: Head CT 12/11/2008 FINDINGS: No acute intracranial hemorrhage, midline shift, intracranial mass, hydrocephalus, territorial ischem ia or abnormal extra-axial collection. Age-related involutional changes with ex vacuo ventriculomegal y. Chronic appearing lacunar infarcts of the basal ganglia with chronic left cerebellar infarcts, new from prior. The study is mildly motion degraded. Cerebral vascular calcifications. The calvarium is intact. Prior bilateral lens repair. The paranasal sinuses, mastoid air cells, and m iddle ear cavities are clear. IMPRESSION: 1. No acute intracranial abnormality or calvarial fracture. 2. Age-related involutional changes with chronic microvascular ischemic disease. 3. Chronic lacunar infarcts of the basal ganglia with chronic appearing left cerebellar infarcts, new from the 2008 comparison. ACT 112: Negative or not required by law. The above report was generated using voice recognition software. It may contain grammatical, syntax o r spelling errors. Electronically signed by: Remigio Friedman M.D. 06/14/2021 4:28 PM
[2021-06-14 17:10] LABS: Alanine Aminotransferase 16 U/L (7-52); Albumin Globulin Ratio 1.2 (0.9-2); Albumin Level 3.8 gm/dl (3.4-5.0); Alkaline Phosphatase 55 U/L (34-104); Anion Gap 7 (3-11); BUN Creatinine Ratio 27.7 (10-20); Bilirubin,Total 0.4 mg/dl (0.2-1.0); Blood Urea Nitrogen 36 mg/dl (6-23); Calcium 9.8 mg/dl (8.5-10.1); Carbon Dioxide 25 mmol/L (21-32); Chloride 107 mmol/L (98-107); Est GFR (African American) 42.4 ml/min; Est GFR (Non-African American) 36.6 ml/min; Globulin 3.1 gm/dl (2.5-4.0); Glucose 125 mg/dl (70-99(Fasting)); Lipase 25 U/L (11-82); Sodium 139 mmol/L (136-145); Total Protein 6.9 gm/dl (6.0-8.3)
[2021-06-14 17:15] LABS: Appearance Urine Cloudy (Clear); Bacteria Urine Automated 4+ (Negative); Bilirubin Urine Negative (Negative); Blood Urine Negative (Negative); Color Urine Yellow; Epithelial Cell Urine Auto >30 /lpf (0-5); Glucose Urine UA Negative (Negative); Ketones Urine Negative (Negative); Leukocyte Esterase Urine 2+ (Negative); Nitrite Urine Positive (Negative); Protein Urine Negative (Negative); RBC Urine Automated 0-4 /hpf (0-4); Specific Gravity Urine 1.015 (1.000-1.030); Urobilinogen Urine Negative (Negative); WBC Urine Automated >30 /hpf (0-5)
[2021-06-14 17:24] LABS: Aspartate Aminotransferase 23 U/L (13-39); Potassium 3.5 mmol/L (3.5-5.1)
[2021-06-14] MEDS ORDERED: cefTRIAXone SODIUM 1,000 MG/50 ML BAG IV STA (17:27)
--- NOTE | 2021-06-14 19:34 | History & Physical Report ---
Date of Service June 14, 2021 Edited June 15, 2021 Assessment & Plan (1) Status post fall: Plan: 89-year-old female with history of CVA, hypertension, dyslipidemia, CKD stage III, presented with mechanical fall and episode of effusion last week. STATUS POST MECHANICAL FALL Right parietal scalp laceration Dermabond applied to laceration CT head: No acute process CT cervical spine: No acute fracture PT OT evaluation Denies any other new pain in her body EPISODE OF CONFUSION RULE OUT CVA Happened last week CT head: No acute process Brain MRI: Pending Echocardiogram ordered if positive CVA Monitor in telemetry unit Neurochecks every 4 hours Continue usual aspirin and Lipitor POSSIBLE UTI Urine culture: Negative Ceftriaxone started in the ER, patient has penicillin listed as allergy, anaphylaxis Monitor response ACUTE KIDNEY INJURY Baseline creatinine 1.0, now 1.3 Hold HCTZ and losartan Gentle IV fluid HYPERTENSION Hold losartan and HCTZ in light of acute kidney injury will order as needed hydralazine DYSLIPIDEMIA On Lipitor ABDOMINAL AORTIC ANEURYSM HISTORY Denies abdominal pain DVT prophylaxis SCDs for now Disposition Lives at home Will check PT and OT plan of care discussed with patient, and her family-daughter, granddaughter, in detail and at length all questions answered they are understanding, agreeable, comfortable with the plan of care History of Present Illness Primary Care Provider: Alivia Mueller MD 89-year-old female with history of CVA, hypertension, dyslipidemia, CKD stage III, presented with mechanical fall and episode of effusion last week. History obtained from patient and her daughter, granddaughter at the bedside. Patient was getting up from the chair at the kitchen, trying to reach her walker but unfortunately fell on the floor. She hit her head first on the comfort, and then landed on her buttocks. No loss of consciousness, confusion, no chest pain, shortness of breath, dizziness before or after the fall. As per family, the patient seemed to be off lately-balance seems to be worse than usual. Last week, patient reported some visual changes, intermittent, black spots/lines. No fevers, urinary symptoms, abdominal pain, nausea or vomiting. At the ER, patient found to have laceration of the right parietal area, Dermabond applied. CT head: No acute process, chronic lacunar and basal ganglia infarcts Urinalysis: Indicative of UTI On exam, patient just returned from brain MRI. States she feels okay overall, just stiff on her buttocks and legs which is usual for her. Denies headache, dizziness, change in vision, nausea vomiting, focal neurologic deficits. At the ER she was given 500 normal saline, and ceftriaxone IV. Allergies Allergy/AdvReac Type Severity Reaction Status Date / Time doxycycline Allergy Severe SWELLING Verified 06/14/21 16:41 Penicillins Allergy Severe ANAPHYLAXIS Verified 06/14/21 16:41 Home Medications Medication Instructions Recorded Confirmed Type acetaminophen 500 mg tablet 500 mg PO UD 03/19/19 06/14/21 History (Tylenol Extra Strength) ascorbic acid (vitamin C) 500 mg 500 mg PO DAILY 03/19/19 06/14/21 History tablet (Vitamin C) aspirin 81 mg chewable tablet 81 mg PO QAM 03/19/19 06/14/21 History atorvastatin 20 mg tablet 20 mg PO QDD 03/19/19 06/14/21 History carvedilol 12.5 mg tablet 12.5 mg PO BID 03/19/19 06/14/21 History fluoride (sodium) 1.1 % dental 1 applic DENTAL DAILY 03/19/19 06/14/21 History cream (Denta 5000 Plus) lactobacillus combination no.4 3 3,000 mmu cells PO .Q2D.QAM 03/19/19 06/14/21 History billion cell capsule (Probiotic) losartan 100 mg tablet 100 mg PO QAM 03/19/19 06/14/21 History multivitamin 1 tab PO QAM 03/19/19 06/14/21 History vitamin B complex 1 tab PO QDD 03/19/19 06/14/21 History vitamin E 400 unit capsule 400 unit PO QAM 03/19/19 06/14/21 History diclofenac sodium 1 % topical gel 2 g TOPICAL QID PRN 06/14/21 06/14/21 History docusate sodium 100 mg capsule 100 mg PO BID PRN 06/14/21 06/14/21 History glucosamine sulf dipot 1 cap PO DAILY 06/14/21 06/14/21 History chlr,msm,chond 550 mg-C 30 mg-behzad 1 mg capsule (Glucosamine Chondroitin) hydrochlorothiazide 25 mg tablet 25 mg PO QAM 06/14/21 06/14/21 History vit C 250 mg-vit E 90 mg-zinc 40 1 tab PO BID 04/18/22 04/18/22 History mg-copper 1 [id number] capsule (PreserVision AREDS-2) Past Med/Surg History Medical History (Updated 06/14/21 @ 20:43 by Rafita Mckinnon DO) AAA (abdominal aortic aneurysm) CKD (chronic kidney disease), stage III History of CVA (cerebrovascular accident) History of tobacco abuse HLD (hyperlipidemia) HTN (hypertension) Osteoporosis Stroke Surgical History History of cataract surgery History of tonsillectomy Family History Father , 53 No problems noted. Mother , 93 PMR (polymyalgia rheumatica) Other No pertinent family history in first degree relatives Social History Smoking Status: Former smoker packs per day: 1; Years Smoked: 50; Second Hand Exposure: No; Hx Alcohol Use: Yes Hx Substance Use: No Preferred Language: Indonesian Communication Ability: Effective Door Slinger Required: No Beliefs That Will Affect Care: None marital status: Current Living Situation: Family Current Living Situation Comment: lives with daughter How many Children do You have: 5 Other Information That Helps Us Care for You: No Feels Safe at Home: Yes Safety Concerns: Feels Safe At This Time Assistive Devices: Walker Review of Systems Review of Systems: all noted and negative except for above Physical Exam Physical Exam: General- oriented x 3, not in distress, speaks in sentences with no effort or accessory muscle use Head-positive small laceration right parietal area, Dermabond present, no active bleeding Eyes- PERRL, EOMI, anicteric ENT- oropharynx clear Neck- supple, no JVD, no adenopathy, no thyromegaly; carotids +2/2, no bruits appreciated Lungs- clear to auscultation bilaterally, no rales/wheezes Heart- normal rate, regular rhythm; no murmur, no gallop, no rub appreciated Abdomen- normal bowel sounds, nondistended, soft, nontender, no masses or hepatosplenomegaly Extremities- no pretibial edema, no calf tenderness; peripheral pulses intact Neuro- alert, oriented x 3; CN 2-12 grossly intact; motor 5/5 bilaterally;sensation 100% on all extremities; no other gross focal neurologic deficits Skin- warm & dry Results & Data Results & Data ([place]) Vital Signs (Past 12 Hours) Vital Signs Temp Pulse Resp BP Pulse Ox 06/14/21 16:02 18 98 06/14/21 15:21 37.0 C 101 H 16 145/79 H 98 all noted and reviewed including below Code Status & VTE Plan VTE Prophylaxis Plan VTE Prophylaxis will be ordered: Yes
--- NOTE | 2021-06-14 20:58 | Magnetic Resonance Report ---
MR brain wo con HISTORY: 89 years-old Female r/o acute cva . Acute strokelike symptoms with head trauma COMPARISON: CT head of same day and also 12/11/2008, brain MRI 12/21/2007 TECHNIQUE: Multiplanar multisequence MRI of the brain was obtained without the use of IV contrast. FINDINGS: The forging engineer localizer images demonstrate no gross extracranial abnormality. There is no restricted diff usion to suggest acute or subacute infarct. Hematoma right parietal scalp to the vertex. Numerous foc i of blooming artifacts noted within the basal ganglia to lesser extent scattered throughout the bila teral cerebral and cerebellar hemispheres. Numerous chronic lacunar infarcts of the basal ganglia wit h chronic infarcts of the left cerebellum. These are new from prior. Age-related involutional changes . Mild to moderate patchy T2/FLAIR hyperintense foci are noted throughout the white matter. Sclerosis of the left cerebellum. No acute intracranial hemorrhage, midline shift, abnormal extra-axial collec tion, hydrocephalus or intracranial mass. The cerebral venous sinuses and major arterial flow voids appear patent. Mastoid air cells are clear. Mild mucosal thickening of the ethmoid sinuses. Prior bilateral lens repair. Motion degraded exam. IMPRESSION: 1. Motion degraded exam. No acute intracranial abnormality. No acute or subacute infarct. 2. Right parietal scalp hematoma. 3. Age-related involutional changes with mild to moderate chronic microvascular ischemic disease. 4. Numerous chronic lacunar infarcts of the basal ganglia with chronic infarcts of the left cerebellu m, new from 12/11/2008. 5. Numerous scattered foci of blooming artifact suggests hemosiderin from chronic microhemorrhage. Co rrelate clinically to exclude amyloid angiopathy. ACT 112: Negative or not required by law. The above report was generated using voice recognition software. It may contain grammatical, syntax o r spelling errors. Electronically signed by: Remigio Friedman M.D. 06/14/2021 8:55 PM
[2021-06-14] MEDS ORDERED: ONDANSETRON INJ 2 MG/ML 2 ML VIAL IV PRN (21:33)
[2021-06-14] MEDS ORDERED: ACETAMINOPHEN 325 MG TAB PO PRN (21:33)
[2021-06-14] MEDS ORDERED: hydrALAZINE HCL 20 MG/ML VIAL IV PRN (21:33)
[2021-06-14] MEDS: carvediloL 12.5 MG TAB PO SCH (22:50)
[2021-06-14] MEDS: SODIUM CHLORIDE 0.9% 1000ML 1,000 ML IV SCH (22:50)
[2021-06-15] MEDS: carvediloL 12.5 MG TAB PO SCH ×2 (07:34→20:32)
[2021-06-15] MEDS: ASPIRIN 81 MG ECTAB PO SCH (07:34)
[2021-06-15 08:04] LABS: Basophils # (auto) 0.06 K/uL (0-0.2); Basophils % (auto) 0.7 %; Eosinophils # (auto) 0.51 K/uL (0-0.5); Hematocrit (blood only) 36.8 % (37-47); Hemoglobin 12.2 g/dL (12.0-16.0); Immature Granulocytes # (auto) 0.03 K/uL (0.00-0.02); Immature Granulocytes % (auto) 0.4 %; Lymphocytes % (auto) 18.7 %; Mean Corpuscular Hemoglobin 30.8 pg (25-34); Mean Corpuscular Hgb Conc 33.2 g/dL (32-36); Mean Corpuscular Volume 92.9 fL (80-100); Mean Platelet Volume 11.6 fL (7.4-10.4); Monocytes # (auto) 0.72 K/uL (0.11-0.59); Monocytes % (auto) 8.4 %; Neutrophils # (auto) 5.62 K/uL (1.4-6.5); Neutrophils % (auto) 65.8 %; Platelet Count 167 K/uL (130-400); RDW Coefficient of Variation 14.2 % (11.5-14.5); RDW Standard Deviation 48.8 fL (36.4-46.3); Red Blood Count 3.96 M/uL (4.2-5.4); White Blood Count 8.54 K/uL (4.8-10.8)
[2021-06-15 08:34] LABS: BUN Creatinine Ratio 24.3 (10-20); Calcium 9.2 mg/dl (8.5-10.1); Creatinine Clr Calc Pharmacy 35.5 ml/min; Est GFR (African American) 51.3 ml/min; Est GFR (Non-African American) 44.3 ml/min; Potassium 3.5 mmol/L (3.5-5.1)
[2021-06-15] MEDS ORDERED: ADVANCED PROBIOTIC 1250 MG CAPSULE PO SCH (09:00)
[2021-06-15] MEDS: SODIUM CHLORIDE 0.9% 1000ML 1,000 ML IV SCH (14:46)
[2021-06-15] MEDS: ATORVASTATIN 20 MG TAB PO SCH (15:22)
[2021-06-15] MEDS: LOSARTAN POTASSIUM 50 MG TAB PO SCH (15:22)
--- NOTE | 2021-06-15 15:49 | XRay Report ---
XR hip RAN 2v w pelvis CLINICAL HISTORY: pain, s/p fall COMPARISON STUDY: No previous studies for comparison. FINDINGS: Extensive vascular calcification is incidentally noted. Sacroiliac joints and symphysis pub is are intact. No acute proximal femoral fracture is present. 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 Acute nondisplaced fracture of the right inferior pubic ramus is noted. An acute mild ly displaced fracture of the right superior pubic ramus which may extend to the symphysis. IMPRESSION: 1. Acute mildly displaced fracture of the right superior pubic ramus/medial right pubic bone and an a cute displaced fracture of the right inferior pubic ramus. 2. No acute proximal femoral fracture. ACT 112: Negative or not required by law. Electronically signed by: Will Arora M.D. 06/15/2021 3:48 PM
[2021-06-15] MEDS: cefTRIAXone SODIUM 1,000 MG in DEXTROSE 5% 50 ML IV SCH (17:33)
--- NOTE | 2021-06-15 18:04 | Hospitalist Progress Note ---
Date of Service June 15, 2021 Assessment & Plan (1) Status post fall: Plan: 89-year-old female with history of CVA, hypertension, dyslipidemia, CKD stage III, presented with mechanical fall and episode of effusion last week. STATUS POST MECHANICAL FALL Right parietal scalp laceration-healing well Dermabond applied to laceration CT head: No acute process CT cervical spine: No acute fracture PT OT evaluation RIGHT SUPERIOR PUBIC RAMUS FRACTURE, MILDLY DISPLACED RIGHT INFERIOR PUBIC RAMUS FRACTURE, DISPLACED Reporting inguinal pain today, thus bilateral pelvic and hip x-ray performed Superior pubic rami fracture noted as above No hip fractures on x-rays Ortho consulted Bedrest for now until evaluated by Ortho service EPISODE OF VISUAL CHANGES Acute CVA ruled out Occurred last week On aspirin, Lipitor since last CVA 2008 Was on Coumadin but discontinued 2019 CT head: No acute process Brain MRI: No acute CVA, chronic basal ganglia and left cerebellar infarcts No new focal neurologic deficits at this time Monitor in telemetry unit Neurochecks every 4 hours Continue usual aspirin and Lipitor POSSIBLE UTI Urine culture: Pending Ceftriaxone started in the ER, no reactions noted Continue ceftriaxone 1 g IV day #2 Follow-up urine culture Monitor response ACUTE KIDNEY INJURY Baseline creatinine 1.0, on admission 1.3 Held HCTZ and losartan Given gentle IV fluids Creatinine back to baseline Resume losartan, hold HCTZ HYPERTENSION Resume losartan, hold HCTZ Patient may not be good candidate for HCTZ in light of high risk for dehydration will order as needed hydralazine Consider amlodipine if blood pressures elevated DYSLIPIDEMIA On Lipitor ABDOMINAL AORTIC ANEURYSM HISTORY Denies abdominal pain DVT prophylaxis SCDs for now given recent head trauma Disposition Lives at home, uses a walker PT and OT evaluation plan of care discussed with patient, and her family-daughter, granddaughter, in detail and at length all questions answered they are understanding, agreeable, comfortable with the plan of care Admission and Anticipated Discharge Date Admission Date: June 14, 2021 Subjective Follow-up for status post mechanical fall, UTI, etc. Seen resting in bed, sitting up, eating chocolate, family-daughter and granddaughter at the bedside States that she feels better today Denies headache, dizziness, change in vision, nausea or vomiting, focal neurologic deficits No chest pain, palpitations, dizziness, shortness of breath No fevers or chills, abdominal pain, nausea vomiting, problems with urination or bowel movement Does report new right groin pain, also buttock pain No other symptoms Review of Systems Review of Systems: all noted and negative except for above Physical Exam Physical Exam: General- oriented x 3, not in distress, speaks in sentences with no effort or accessory muscle use Head-small laceration right radial area-healing well Eyes- anicteric Neck- no JVD Lungs- clear breath sounds bilaterally, no rales/wheezes Heart- normal rate, regular rhythm; no murmurs Abdomen- normal bowel sounds, nondistended, soft, nontender Extremities- no pretibial edema, no calf tenderness Neuro- alert, oriented x 3; no gross focal neurologic deficits Skin- warm & dry Results & Data Results & Data ([facility]) Vital Signs (Past 12 Hours) Vital Signs Temp Pulse Pulse Resp BP Pulse Ox 06/15/21 15:48 71 06/15/21 15:31 36.7 C 73 18 143/73 H 92 06/15/21 11:06 36.7 C 61 18 161/75 H 95 06/15/21 07:23 36.5 C 85 18 181/62 H 91 06/15/21 07:03 64 all noted and reviewed including below
[2021-06-16] MEDS ORDERED: carvediloL 12.5 MG TAB PO SCH (04:35)
[2021-06-16] MEDS ORDERED: POTASSIUM CHLORIDE CRTAB 20 MEQ TABCR PO STA ×2 (04:35→08:03)
[2021-06-16 06:08] LABS: Basophils # (auto) 0.05 K/uL (0-0.2); Basophils % (auto) 0.5 %; Eosinophils # (auto) 0.38 K/uL (0-0.5); Eosinophils % (auto) 3.9 %; Hematocrit (blood only) 36.9 % (37-47); Hemoglobin 12.2 g/dL (12.0-16.0); Immature Granulocytes # (auto) 0.02 K/uL (0.00-0.02); Immature Granulocytes % (auto) 0.2 %; Lymphocytes # (auto) 1.54 K/uL (1.2-3.4); Lymphocytes % (auto) 15.9 %; Mean Corpuscular Hemoglobin 30.6 pg (25-34); Mean Corpuscular Hgb Conc 33.1 g/dL (32-36); Mean Corpuscular Volume 92.5 fL (80-100); Mean Platelet Volume 11.2 fL (7.4-10.4); Monocytes # (auto) 0.69 K/uL (0.11-0.59); Monocytes % (auto) 7.1 %; Neutrophils # (auto) 7.02 K/uL (1.4-6.5); Neutrophils % (auto) 72.4 %; Platelet Count 152 K/uL (130-400); RDW Coefficient of Variation 14.3 % (11.5-14.5); RDW Standard Deviation 48.6 fL (36.4-46.3); Red Blood Count 3.99 M/uL (4.2-5.4)
[2021-06-16 06:37] LABS: BUN Creatinine Ratio 17.8 (10-20); Calcium 9.1 mg/dl (8.5-10.1); Est GFR (African American) 53.7 ml/min; Est GFR (Non-African American) 46.3 ml/min; Magnesium 1.9 mg/dl (1.7-2.4); Potassium 3.4 mmol/L (3.5-5.1)
[2021-06-16] MEDS: LOSARTAN POTASSIUM 50 MG TAB PO SCH (08:33)
[2021-06-16] MEDS: ASPIRIN 81 MG ECTAB PO SCH (08:34)
--- NOTE | 2021-06-16 13:23 | Orthopedic Consultation ---
Date of Consultation June 16, 2021 Assessment & Plan (1) Pubic ramus fracture: Superior/inferior pubic ramus fracture minimally displaced. X-rays have been reviewed with Dr. Madera. This is a nonsurgical fracture and will heal over time. Patient can be weightbearing as tolerated. She can be started on physical therapy today. Patient states that she does have somebody from physical therapy coming into her house on a regular basis and will continue to do so. Patient can follow-up in the office with Dr. Madera or his PA in 4 weeks. History of Present Illness Reason for Consultation: Pelvic fracture Attending Physician: Bishop Melendez MD History of Present Illness Patient is an 89-year-old female with history of CVA, hypertension, dyslipidemia, CKD stage III who lives with her daughter who is her primary entertainment production professional. Patient was getting up from the chair at the kitchen, trying to reach her walker but unfortunately fell on the floor. She hit her head first as she fell, and then landed on her buttocks. No loss of consciousness, confusion, no chest pain, shortness of breath, dizziness before or after the fall. Patient was brought to the emergency room and was seen by the staff. X-rays were taken and was found that she had a right pubic ramus fracture. She was admitted for further care and we have been asked to see her for her fracture. Allergies Allergy/AdvReac Type Severity Reaction Status Date / Time doxycycline Allergy Severe SWELLING Verified 06/14/21 16:41 Penicillins Allergy Severe ANAPHYLAXIS Verified 06/14/21 16:41 Home Medications Medication Instructions Recorded Confirmed Type acetaminophen 500 mg tablet 500 mg PO UD 03/19/19 06/14/21 History (Tylenol Extra Strength) ascorbic acid (vitamin C) 500 mg 500 mg PO DAILY 03/19/19 06/14/21 History tablet (Vitamin C) aspirin 81 mg chewable tablet 81 mg PO QAM 03/19/19 06/14/21 History atorvastatin 20 mg tablet 20 mg PO QDD 03/19/19 06/14/21 History carvedilol 12.5 mg tablet 12.5 mg PO BID 03/19/19 06/14/21 History fluoride (sodium) 1.1 % dental 1 applic DENTAL DAILY 03/19/19 06/14/21 History cream (Denta 5000 Plus) lactobacillus combination no.4 3 3,000 mmu cells PO .Q2D.QAM 03/19/19 06/14/21 History billion cell capsule (Probiotic) losartan 100 mg tablet 100 mg PO QAM 03/19/19 06/14/21 History multivitamin 1 tab PO QAM 03/19/19 06/14/21 History vitamin B complex 1 tab PO QDD 03/19/19 06/14/21 History vitamin E 400 unit capsule 400 unit PO QAM 03/19/19 06/14/21 History diclofenac sodium 1 % topical gel 2 g TOPICAL QID PRN 06/14/21 06/14/21 History docusate sodium 100 mg capsule 100 mg PO BID PRN 06/14/21 06/14/21 History glucosamine sulf dipot 1 cap PO DAILY 06/14/21 06/14/21 History chlr,msm,chond 550 mg-C 30 mg-behzad 1 mg capsule (Glucosamine Chondroitin) hydrochlorothiazide 25 mg tablet 25 mg PO QAM 06/14/21 06/14/21 History vit C 250 mg-vit E 90 mg-zinc 40 1 tab PO BID 06/14/21 06/14/21 History mg-copper 1 [id number]-[id number] capsule (PreserVision AREDS-2) Patient History Medical History (Updated 06/16/21 @ 13:29 by Seven Dyer PA-C) AAA (abdominal aortic aneurysm) CKD (chronic kidney disease), stage III History of CVA (cerebrovascular accident) History of tobacco abuse HLD (hyperlipidemia) HTN (hypertension) Osteoporosis Stroke Surgical History History of cataract surgery History of tonsillectomy Family History Father , 53 No problems noted. Mother , 93 PMR (polymyalgia rheumatica) Other No pertinent family history in first degree relatives Social History Smoking Status: Former smoker packs per day: 1; Years Smoked: 50; Second Hand Exposure: No; Hx Alcohol Use: Yes Hx Substance Use: No Preferred Language: Yi Communication Ability: Effective Tongue Lining Stitcher Required: No Beliefs That Will Affect Care: None marital status: Current Living Situation: Family Current Living Situation Comment: lives with daughter How many Children do You have: 5 Other Information That Helps Us Care for You: No Feels Safe at Home: Yes Safety Concerns: Feels Safe At This Time Assistive Devices: Walker Physical Exam Physical Exam: Patient is an 89-year-old white female who is awake and alert and oriented to person and place. No acute distress, pleasant and cooperative. On examination of her right lower extremity, she has a small bruise over the lateral aspect of her right hip/buttock area. No other areas of ecchymosis noted down the lower extremity at this time. She is nontender on palpation of her right knee. She has some mild tenderness on palpation of the lateral hip. She is nontender at the right ankle and is able to go through range of motion. Taking the right lower extremity through passive range of motion, I am able to take the right hip through flexion and extension, internal and external ro tation, and adduction without much in the way of pain in the hip or groin area. Abduction does cause her a little bit of discomfort in the right groin. Axial loading does not cause discomfort. Patient states that her left lower extremity does not bother her at this time and was not injured during the fall. She is taking her upper extremities through gentle range of motion without difficulty. She does have a large bruise over the right elbow but elbow range of motion is within normal limits without pain. There is no gross motor or sensory loss seen at this time. Results & Data ([facility]) Vital Signs (Past 12 Hours) Vital Signs Temp Pulse Pulse Resp BP Pulse Ox 06/16/21 12:00 36.3 C L 85 18 192/102 H 92 06/16/21 08:31 36.7 C 73 18 162/79 H 94 06/16/21 08:00 69 06/16/21 02:46 36.7 C 72 18 169/71 H 92 Diagnostic Findings Patient:TONY GANDARA Admit Date:06/14/21 MR#:[id number] Address1:[address] Acct ID:[id number] Address2: Date:[address] [facility] Zip:[place] [address] Age:89 Location: Sex:F Room/Bed:[facility] Att Phy:Jose Sequeira MD Diagnosis:S/P FALL Wendy Phy:Alivia Mueller MD Service Date:06/15/21 [facility] Phy: Interpreting [facility] Phy:Jose Sequeira MD Ordering Phy:Jose Sequeira MD cc: ~ XR hip RAN 2v w pelvis CLINICAL HISTORY: pain, s/p fall COMPARISON STUDY: No previous studies for comparison. FINDINGS: Extensive vascular calcification is incidentally noted. Sacroiliac joints and symphysis pubis are intact. No acute proximal femoral fracture is present. 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 Acute nondisplaced fracture of the right inferior pubic ramus is noted. An acute mildly displaced fracture of the right superior pubic ramus which may extend to the symphysis. IMPRESSION: 1. Acute mildly displaced fracture of the right superior pubic ramus/medial right pubic bone and an acute displaced fracture of the right inferior pubic ramus. 2. No acute proximal femoral fracture. ACT 112: Negative or not required by law.
[2021-06-16] MEDS ORDERED: hydrALAZINE HCL 20 MG/ML VIAL IV STA (15:27)
[2021-06-16] MEDS: ATORVASTATIN 20 MG TAB PO SCH (15:48)
--- NOTE | 2021-06-16 15:48 | Discharge Summary ---
Date of Service June 16, 2021 Admission HPI Per Admitting Provider 89-year-old female with history of CVA, hypertension, dyslipidemia, CKD stage III, presented with mechanical fall and episode of effusion last week. History obtained from patient and her daughter, granddaughter at the bedside. Patient was getting up from the chair at the kitchen, trying to reach her walker but unfortunately fell on the floor. She hit her head first on the comfort, and then landed on her buttocks. No loss of consciousness, confusion, no chest pain, shortness of breath, dizziness before or after the fall. As per family, the patient seemed to be off lately-balance seems to be worse than usual. Last week, patient reported some visual changes, intermittent, black spots/lines. No fevers, urinary symptoms, abdominal pain, nausea or vomiting. At the ER, patient found to have laceration of the right parietal area, Dermabond applied. CT head: No acute process, chronic lacunar and basal ganglia infarcts Urinalysis: Indicative of UTI On exam, patient just returned from brain MRI. States she feels okay overall, just stiff on her buttocks and legs which is usual for her. Denies headache, dizziness, change in vision, nausea vomiting, focal neurologic deficits. At the ER she was given 500 normal saline, and ceftriaxone IV. Admission Exam Per Admitting Provider General- oriented x 3, not in distress, speaks in sentences with no effort or accessory muscle use Head-positive small laceration right parietal area, Dermabond present, no active bleeding Eyes- PERRL, EOMI, anicteric ENT- oropharynx clear Neck- supple, no JVD, no adenopathy, no thyromegaly; carotids +2/2, no bruits appreciated Lungs- clear to auscultation bilaterally, no rales/wheezes Heart- normal rate, regular rhythm; no murmur, no gallop, no rub appreciated Abdomen- normal bowel sounds, nondistended, soft, nontender, no masses or hepatosplenomegaly Extremities- no pretibial edema, no calf tenderness; peripheral pulses intact Neuro- alert, oriented x 3; CN 2-12 grossly intact; motor 5/5 bilaterally;sensation 100% on all extremities; no other gross focal neurologic deficits Skin- warm & dry Principal Diagnosis Pubic ramus fracture Fall Discharge Exam GENERAL: Alert and oriented x3. NAD, on RA. HEENT: No pallor, no icterus. Pupils equal, round and reactive to light. Oral mucosa moist. NECK: No JVD, no neck masses. HEART: S1 and S2 heard. Regular rate and rhythm. systolic murmur A >P, no gallop. RESPIRATORY SYSTEM: Normal AP diameter. No accessory muscle use. No wheezing, no crackles. ABDOMEN: Soft, bowel sounds present, nontender, no distention. CENTRAL NERVOUS SYSTEM: No facial droop. Speech is clear. Obeys simple commands. Moves extremities. EXTREMITIES: No edema, no erythema seen. Small laceration right radial area -- healing well. Discharge Data Allergies Allergy/AdvReac Type Severity Reaction Status Date / Time doxycycline Allergy Severe SWELLING Verified 06/14/21 16:41 Penicillins Allergy Severe ANAPHYLAXIS Verified 06/14/21 16:41 Consultations 06/14/21 17:48 ED Decision to Admit Stat 06/15/21 16:16 Consult Orthopedic Surgery Routine Ordered Studies 06/14/21 15:18 CT cervical spine wo con Stat CT head/brain wo con Stat 06/14/21 18:04 MR brain wo con Stat Hospital Course (1) Status post fall: 89-year-old female with history of CVA, hypertension, dyslipidemia, CKD stage III, presented with mechanical fall and episode of effusion last week. She was managed for the following: #. STATUS POST MECHANICAL FALL Right parietal scalp laceration-healing well Dermabond applied to laceration CT head: No acute process CT cervical spine: No acute fracture PT OT evaluated, return home with family support, continue with home PT. Prescription provided. #. RIGHT SUPERIOR PUBIC RAMUS FRACTURE, MILDLY DISPLACED #. RIGHT INFERIOR PUBIC RAMUS FRACTURE, DISPLACED Pain under control, ortho evaluated, WBAT, f/u ortho as OP in 4 weeks. #. 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 POSSIBLE UTI s/p rocephin 3 days, will DC with 2 more days of oral ATB #. ACUTE KIDNEY INJURY Baseline creatinine 1.0, on admission 1.3 Held HCTZ and losartan Creatinine back to baseline Resume losartan, hold HCTZ #. HYPERTENSION Resume losartan, hold HCTZ Patient may not be good candidate for HCTZ in light of high risk for dehydration Amlodipine added, will need OP f/u with PCP for further eval of her BP management. Patient's daughter Abbie was given a phone call and updated about the current status of the patient. Answered all questions. Patient is being discharged with following instruction at the point of discharge: Follow-up with your primary care physician within a week time. Continue with physical therapy at home, prescription for physical therapy will be provided. [place] fall precaution at home, for your pubic fracture, follow-up with orthopedics as an outpatient in 4 weeks. Weightbearing as tolerated. Maintain your blood pressure measurement twice a day, maintain a log, take it to your primary care physician for evaluation/adjustment of her blood pressure medication. You can use Tylenol extra strength [id number] for your pain, if needed for severe pain you can use given opioid prescription, you will have to get in touch with her outpatient physician for further prescription on the pain medication if needed. Since your blood pressure was elevated and your HCTZ was discontinued due to concerns of dehydration/SHERRI, you have been started on amlodipine. Take your medications as prescribed. Total Time Total Time Spent Total Time Spent (In Minutes): 45 Discharge Plan Discharge Items Patient Disposition: Home - Home Health Services Reason For Visit: S/P FALL Discharge Diagnosis: Pubic ramus fracture Fall Activity: Resume your previous activity Non-emergency contact: Primary Care Provider Call non-emergency contact if: you have any medication questions, your symptoms worsen, your pain is not controlled, your pain is worsening and your temperature is above 101 Follow-up/Referrals: Alivia Mueller MD [Primary Care Provider] - Diet: Heart Healthy Addtl Attending Provider Instructions: Follow-up with your primary care physician within a week time. Continue with physical therapy at home, prescription for physical therapy is provided. [place] fall precaution at home, for your pubic fracture, follow-up with orthopedics as an outpatient in 4 weeks. Weightbearing as tolerated. Maintain your blood pressure measurement twice a day, maintain a log, take it to your primary care physician for evaluation/adjustment of her blood pressure medication. You can use Tylenol extra strength [id number] for your pain, if needed for severe pain you can use given opioid prescription, you will have to get in touch with your outpatient physician for further prescription on the pain medication if needed. Since your blood pressure was elevated and your HCTZ was discontinued due to concerns of dehydration/SHERRI, you have been started on amlodipine. Take your medications as prescribed. Pending Studies at Discharge: No Stand-Alone Forms: My [facility], Smoking Cessation Medications and DC Order Prescriptions: New amlodipine 5 mg tablet 5 mg PO DAILY Qty: 30 RF: 0 cephalexin 500 mg capsule 500 mg PO BID Qty: 4 RF: 0 oxycodone-acetaminophen [Percocet] 5-325 mg tablet 1 tab PO Q8H PRN (Reason: severe pain (scale score 7-10)) Qty: 10 RF: 0 Continued multivitamin Tablet 1 tab PO QAM RF: 0 atorvastatin 20 mg tablet 20 mg PO QDD RF: 0 carvedilol 12.5 mg tablet 12.5 mg PO BID RF: 0 ascorbic acid (vitamin C) [Vitamin C] 500 mg Tablet 500 mg PO DAILY RF: 0 aspirin 81 mg Tablet,Chewable 81 mg PO QAM RF: 0 vitamin B complex Tablet 1 tab PO QDD RF: 0 losartan 100 mg tablet 100 mg PO QAM RF: 0 vitamin E 400 unit Capsule 400 unit PO QAM RF: 0 fluoride (sodium) [Denta 5000 Plus] 1.1 % Cream 1 applic DENTAL DAILY RF: 0 Probiotic 3 billion cell Capsule 3,000 mmu cells PO .Q2D.QAM RF: 0 docusate sodium 100 mg Capsule 100 mg PO BID PRN (Reason: Constipation) RF: 0 diclofenac sodium 1 % Gel 2 g TOPICAL QID PRN (Reason: Pain) RF: 0 PreserVision AREDS-2 250-90-40-1 mg Capsule 1 tab PO BID RF: 0 Glucosamine Chondroitin 550-30-1 mg Capsule 1 cap PO DAILY RF: 0 Changed acetaminophen [Tylenol Extra Strength] 500 mg Tablet 500 mg PO Q6H PRN (Reason: pain) Qty: 90 RF: 0 Discontinued hydrochlorothiazide 25 mg tablet 25 mg PO QAM RF: 0 Discharge Orders: Discharge Order (Routine); Ordered 06/16/21 Ordered By: Bishop Melendez Admission Data Admit Date/Time: 06/14/21 18:04 Attending Provider: Bishop Melendez Admit Provider: Jose Sequeira Primary Care Provider: Alivia Mueller Other Providers: Jose Sequeira ; Reid Weber
[2021-06-16] MEDS: cefTRIAXone SODIUM 1,000 MG in DEXTROSE 5% 50 ML IV SCH (16:13)
== END 2021-06-16 18:23 | disposition home health service (06) ==
LOC: ED 15:12 → 2N 18:04 → INTOOBSV 18:04 → SUATTDRO 18:04 → 2N 21:47